=== PATIENT | female | born 1975 | race African-American/Black ===

== ENCOUNTER 2017-02-06 08:08 | Emergency (ER) | payer BC, MEDICAID ==
[2017-02-06] MEDS ORDERED: ONDANSETRON 4 MG TAB.RAPDIS PO ONE (08:45)
--- NOTE | 2017-02-06 08:51 | ER Document Report ---
ED GI/ - General Chief Complaint: Pelvic Pain Stated Complaint: LOWER ABDOMINAL PAIN Time Seen by Provider: 02/06/17 08:36 Notes: 12-year-old female presents to ED for pelvic pain goes around to the back with some nausea. No vomiting no diarrhea. Patient has a history of a complete hysterectomy TRAVEL OUTSIDE OF THE [place] IN LAST 30 DAYS: No - HPI Patient complains to provider of: Pelvic pain, Other - You know Onset: Yesterday Timing/Duration: Gradual Quality of pain: Achy, Cramping Severity at maximum: Moderate Severity in ED: Moderate Pain Level: 3 Location: Left flank, Right flank, Pelvis Vaginal bleeding (Compared to normal period): None LMP: Hysterectomy Associated symptoms: Nausea, Radiates to back Exacerbated by: Denies Relieved by: Denies Similar symptoms previously: Yes Recently seen / treated by doctor: No - Related Data Allergies/Adverse Reactions: No Known Allergies Allergy (Verified 02/06/17 08:11) Past Medical History - General Information source: Patient - Social History Smoking Status: Never Smoker Cigarette use (# per day): No Chew tobacco use (# tins/day): No Smoking Education Provided: No Frequency of alcohol use: None Drug Abuse: None Lives with: Family Family History: Arthritis, CAD, CVA, DM, Hyperlipidemia, Hypertension, Malignancy Patient has suicidal ideation: No Patient has homicidal ideation: No - Past Medical History Cardiac Medical History: Reports: None Pulmonary Medical History: Reports: Hx Pneumonia EENT Medical History: Reports: None Neurological Medical History: Reports: Hx Migraine, Hx Seizures Endocrine Medical History: Reports: None Renal/ Medical History: Reports: Hx Ovarian Cysts Malignancy Medical History: Reports: None GI Medical History: Reports: None Musculoskeltal Medical History: Reports None Skin Medical History: Reports None Psychiatric Medical History: Reports: None Traumatic Medical History: Reports: None Infectious Medical History: Reports: None Past Surgical History: Reports: Hx Section - 3, Hx Hysterectomy - TAHSBO - Immunizations Immunizations up to date: Yes Hx Diphtheria, Pertussis, Tetanus Vaccination: Yes Review of Systems - Review of Systems Constitutional: No symptoms reported EENT: No symptoms reported Cardiovascular: No symptoms reported Respiratory: No symptoms reported Gastrointestinal: Nausea. denies: Vomiting Genitourinary: Flank pain, Other - Pain pelvic Female Genitourinary: No symptoms reported Musculoskeletal: No symptoms reported Skin: No symptoms reported Hematologic/Lymphatic: No symptoms reported Neurological/Psychological: No symptoms reported -: Yes All other systems reviewed and negative Physical Exam - Vital signs Vitals: Temp Pulse Resp BP Pulse Ox 98.0 F 87 16 114/77 98 02/06/17 08:13 02/06/17 08:13 02/06/17 08:13 02/06/17 08:13 02/06/17 08:13 Interpretation: Normal - General General appearance: Appears well, Alert - HEENT Head: Normocephalic, Atraumatic Eyes: Normal Pupils: PERRL - Respiratory Respiratory status: No respiratory distress Chest status: Nontender Breath sounds: Normal Chest palpation: Normal - Cardiovascular Rhythm: Regular Heart sounds: Normal auscultation Murmur: No - Abdominal Inspection: Normal Distension: No distension Bowel sounds: Normal Tenderness: Tender - Pelvic area radiates to the back Organomegaly: No organomegaly - Back Back: Normal, Nontender - Extremities General upper extremity: Normal inspection, Nontender, Normal color, Normal ROM , Normal temperature General lower extremity: Normal inspection, Nontender, Normal color, Normal ROM , Normal temperature, Normal weight bearing. No: Dain's sign - Neurological Neuro grossly intact: Yes Cognition: Normal Orientation: AAOx4 [place] Coma Scale Eye Opening: Spontaneous [place] Coma Scale Verbal: Oriented [place] Coma Scale Motor: Obeys Commands [place] Coma Scale Total: 15 Speech: Normal Motor strength normal: LUE, RUE, LLE, RLE Sensory: Normal - Psychological Associated symptoms: Normal affect, Normal mood - Skin Skin Temperature: Warm Skin Moisture: Dry Skin Color: Normal Course - Re-evaluation Re-evalutation: 02/06/17 12:49 Discussed labs with patient and written report given to patient for follow-up with her primary doctor. - Vital Signs Vital signs: Temp Pulse Resp BP Pulse Ox 98.0 F 80 15 115/73 100 02/06/17 08:13 02/06/17 12:03 02/06/17 12:03 02/06/17 12:03 02/06/17 12:03 - Laboratory Result Diagrams: 02/06/17 08:50 02/06/17 08:50 Laboratory results interpreted by me: 02/06/17 02/06/17 08:50 08:50 Hgb 11.0 L Hct 34.5 L MCHC 31.9 L BUN 22 H Glucose 113 H Discharge - Discharge Clinical Impression: Nausea alone Abdominal pain Qualifiers: Abdominal location: unspecified location Qualified Code(s): R10.9 - Unspecified abdominal pain Condition: Stable Disposition: HOME, SELF-CARE Additional Instructions: ABDOMINAL PAIN: There are many causes of abdominal pain. Pain can mean a serious problem requiring surgery (such as appendicitis). It can also be an innocent problem that goes away on its own (such as a viral infection). Often, time must pass to determine the cause of pain. The physician does not feel that hospitalization is necessary, at present. Things may change within the next 24 hours. Call the doctor or come back for re- examination if any problems occur, such as: (1) Pain that becomes more severe, steady, or becomes concentrated in one specific area. Also, pain that is more severe with movement or coughing. (2) Vomiting that persists or becomes more frequent. (3) Blood in the vomitus, urine, or bowel movements. Blood in the stool may have a tarry or black appearance. (4) Shaking chills or fever greater than 100 degrees F. (5) The abdomen becomes more distended or swollen. (6) Bowel movements cease. (7) Failure to improve as expected. NORMAL EXAM AND WORKUP: At this time, your examination and workup show no significant abnormality. No significant abnormal physical findings are noted. All laboratory, EKG, and imaging (x-ray, CT scans, ultrasound) studies that were ordered show no significant abnormality. Although your examination and all studies that were ordered showed no significant abnormal finding, there are no examinations and no studies that are 100% accurate. There is always the possibility that some abnormality could exist and not be detected with physical examination or within the limits and capabilities of laboratory and other studies. You should return or follow up as you were instructed on your visit today for further evaluation if your symptoms do not resolve. ANTINAUSEA MEDICATION: You have been given a medication to suppress nausea and vomiting. This type of medication can be given as a shot, pill, or suppository. It will usually last for many hours. Pills and shots usually last six to eight hours, suppositories last about 12 hours. For the typical illness, only one or two doses of the medication may be necessary. Mild lightheadedness may occur. This type of medicine can cause drowsiness. Do not drive or operate dangerous machinery while under its influence. Do not mix with alcohol. See your doctor at once if you have muscle spasms or tightness, or uncontrollable motions (particularly of the neck, mouth, or jaw). Persistent vomiting or severe lightheadedness should also be evaluated by the physician. FOLLOW-UP CARE: If you have been referred to a physician for follow-up care, call the physician s office for an appointment as you were instructed or within the next two days. If you experience worsening or a significant change in your symptoms, notify the physician immediately or return to the Emergency Department at any time for re-evaluation. Prescriptions: Ondansetron [Zofran Odt 4 mg Tablet] 1 tab PO Q6H #10 tab.rapdis Forms: Return to Work Referrals: ALVARO DANIELS MD [Primary Care Provider] - Follow up as needed
[2017-02-06 09:11] LABS: ABSOLUTE EOSINOPHILS # (AUTO) 0.2 10^3/uL (0.0-0.6); ABSOLUTE MONOCYTES (AUTO) 0.3 10^3/uL (0.1-1.4); ABSOLUTE NEUT (AUTO) 2.2 10^3/uL (1.7-8.2); BASOPHILS % (AUTO) 0.8 % (0-2); EOSINOPHILS % (AUTO) 3.4 % (0-6); HEMATOCRIT 34.5 % (36.0-47.0); HGB HCT DIFFERENCE -1.5; LYMPHOCYTES % (AUTO) 42.1 % (13-45); MEAN CORPUSCULAR HEMOGLOBIN 27.2 pg (27.0-33.4); MEAN CORPUSCULAR HGB CONC 31.9 g/dL (32.0-36.0); MEAN CORPUSCULAR VOLUME 85 fl (80-97); MONOCYTES % (AUTO) 7.1 % (3-13); RED BLOOD COUNT 4.05 10^6/uL (3.72-5.28); RED CELL DISTRIBUTION WIDTH 13.8 % (11.5-14.0); SEGMENTED NEUTROPHILS % (AUTO) 46.6 % (42-78); WHITE BLOOD COUNT 4.8 10^3/uL (4.0-10.5)
[2017-02-06 09:19] LABS: APPEARANCE,URINE SLIGHTLY-CLOUDY; BILIRUBIN,URINE NEGATIVE (NEGATIVE); GLUCOSE, URINE NEGATIVE (NEGATIVE); KETONES,URINE NEGATIVE (NEGATIVE); LEUKOCYTE ESTERASE,URINE NEGATIVE (NEGATIVE); NITRITE,URINE NEGATIVE (NEGATIVE); PROTEIN,URINE NEGATIVE (NEGATIVE); URINE SPECIFIC GRAVITY 1.033; UROBILINOGEN,URINE NEGATIVE mg/dL (<2.0)
[2017-02-06 09:28] LABS: ALANINE AMINOTRANSFERASE 33 U/L (9-52); ALBUMIN 4.1 g/dL (3.5-5.0); ALKALINE PHOSPHATASE 66 U/L (38-126); ANION GAP 10 (5-19); ASPARTATE AMINO TRANSFERASE 22 U/L (14-36); BILIRUBIN,DIRECT 0.2 mg/dL (0.0-0.4); BILIRUBIN,TOTAL 0.3 mg/dL (0.2-1.3); BLOOD UREA NITROGEN 22 mg/dL (7-20); CALCIUM 9.7 mg/dL (8.4-10.2); CARBON DIOXIDE 27 mmol/L (22-30); CHLORIDE 107 mmol/L (98-107); CREATININE RESULT 0.74 mg/dL (0.52-1.25); GLUCOSE 113 mg/dL (75-110); POTASSIUM 3.7 mmol/L (3.6-5.0); SODIUM 144.2 mmol/L (137-145)
[2017-02-06 12:04] VITALS: BP 115/73
== END 2017-02-06 12:00 | disposition home or self-care (01) ==
LOC: ER 08:08
DX: R10.2 Pelvic and perineal pain (principal); R11.0 Nausea; Z90.710 Acquired absence of both cervix and uterus; Z87.42 Personal history of other diseases of the female genital tract
CPT/HCPCS: 99284; 36415; 85025; 80053; 81001; S0119

== ENCOUNTER 2017-12-18 17:50 | Emergency (ER) | payer MEDICAID ==
--- NOTE | 2017-12-18 18:14 | ER Document Report ---
ED Medical Screen (RME) - General Chief Complaint: Probable Seizure Stated Complaint: POSSIBLE SEIZURE Time Seen by Provider: 12/18/17 18:13 Notes: Patient presents from the dentist office where she apparently had multiple seizures. She does have a seizure history. She states she has not taken any medications for seizures in over 5 years because she does not like the way they make her feel. TRAVEL OUTSIDE OF THE [place] IN LAST 30 DAYS: No - Related Data Allergies/Adverse Reactions: No Known Allergies Allergy (Verified 02/06/17 08:11) Past Medical History Pulmonary Medical History: Reports: Hx Pneumonia Neurological Medical History: Reports: Hx Migraine, Hx Seizures Renal/ Medical History: Reports: Hx Ovarian Cysts. Denies: Hx Peritoneal Dialysis Past Surgical History: Reports: Hx Section - 3, Hx Hysterectomy - TAHSBO - Immunizations Immunizations up to date: Yes Hx Diphtheria, Pertussis, Tetanus Vaccination: Yes Physical Exam - Vital signs Vitals: Temp Pulse Resp BP Pulse Ox 97.9 F 86 16 118/80 97 12/18/17 18:04 12/18/17 18:04 12/18/17 18:04 12/18/17 18:04 12/18/17 18:04 Course - Vital Signs Vital signs: Temp Pulse Resp BP Pulse Ox 97.9 F 86 16 118/80 97 12/18/17 18:04 12/18/17 18:04 12/18/17 18:04 12/18/17 18:04 12/18/17 18:04
[2017-12-18 18:55] LABS: ABSOLUTE EOSINOPHILS # (AUTO) 0.1 10^3/uL (0.0-0.6); ABSOLUTE LYMPHOCYTES (AUTO) 1.8 10^3/uL (0.5-4.7); ABSOLUTE MONOCYTES (AUTO) 0.4 10^3/uL (0.1-1.4); ABSOLUTE NEUT (AUTO) 2.8 10^3/uL (1.7-8.2); BASOPHILS % (AUTO) 0.8 % (0-2); EOSINOPHILS % (AUTO) 2.4 % (0-6); HEMATOCRIT 37.7 % (36.0-47.0); LYMPHOCYTES % (AUTO) 34.9 % (13-45); MEAN CORPUSCULAR HEMOGLOBIN 26.9 pg (27.0-33.4); MEAN CORPUSCULAR HGB CONC 31.9 g/dL (32.0-36.0); MEAN CORPUSCULAR VOLUME 84 fl (80-97); MONOCYTES % (AUTO) 7.4 % (3-13); PLATELET COUNT 252 10^3/uL (150-450); RED BLOOD COUNT 4.46 10^6/uL (3.72-5.28); RED CELL DISTRIBUTION WIDTH 14.1 % (11.5-14.0); SEGMENTED NEUTROPHILS % (AUTO) 54.5 % (42-78); TOTAL CELLS COUNTED % (AUTO) 100 %; WHITE BLOOD COUNT 5.1 10^3/uL (4.0-10.5)
[2017-12-18 19:11] LABS: APPEARANCE,URINE CLEAR; BILIRUBIN,URINE NEGATIVE (NEGATIVE); COLOR,URINE YELLOW; GLUCOSE, URINE NEGATIVE (NEGATIVE); KETONES,URINE NEGATIVE (NEGATIVE); LEUKOCYTE ESTERASE,URINE NEGATIVE (NEGATIVE); NITRITE,URINE NEGATIVE (NEGATIVE); PROTEIN,URINE NEGATIVE (NEGATIVE); URINE SPECIFIC GRAVITY 1.026
[2017-12-18] MEDS ORDERED: LEVETIRACETAM 1000 MG/NACL-ISO 1,000 MG/100 ML RTUPB IV ONE (19:13)
[2017-12-18] MEDS ORDERED: NORMAL SALINE 1000 ML 1,000 ML IV ONE ×2 (19:13→20:34)
[2017-12-18] MEDS ORDERED: ONDANSETRON HCL INJ/PF 4 MG/2 ML SDV IV ONE (19:13)
--- NOTE | 2017-12-18 19:15 | ER Document Report ---
ED Seizure - General Chief Complaint: Probable Seizure Stated Complaint: POSSIBLE SEIZURE Time Seen by Provider: 12/18/17 18:13 Mode of Arrival: Stretcher Information source: Patient, Relative - HPI Patient complains to provider of: History of seizures Quality of pain: Achy Severity: Moderate Pain Level: 4 Can details of seizure be obtained/verified: Yes Character of seizure: Complete loss/conscious Post-ictal symptoms: Confusion, Headache Injuries: None Associated Symptoms: None Notes: Patient is a 42-year-old female with a history of epilepsy who took herself off medications approximately 2 years ago secondary to side effect profile, presents to the emergency room after having approximately 7 seizures while at the dentist today, seizures were witnessed by family member who reports generalized tonic-clonic activity, patient reports a headache after the fact and the last thing she remembers was going to the dentist, she was having a filling placed and did receive local anesthetic prior to seizure activity occurring, she denies any seizures prior to her dentist appointment, her last seizure was a 1-1/2 years ago, she denies any recent illness or injury - Related Data Allergies/Adverse Reactions: No Known Allergies Allergy (Verified 02/06/17 08:11) Past Medical History - General Information source: Patient - Social History Smoking Status: Never Smoker Chew tobacco use (# tins/day): No Frequency of alcohol use: Occasional Drug Abuse: None Family History: Arthritis, CAD, CVA, DM, Hyperlipidemia, Hypertension, Malignancy Patient has suicidal ideation: No Patient has homicidal ideation: No Pulmonary Medical History: Reports: Hx Pneumonia Neurological Medical History: Reports: Hx Migraine, Hx Seizures Renal/ Medical History: Reports: Hx Ovarian Cysts. Denies: Hx Peritoneal Dialysis Past Surgical History: Reports: Hx Section - 3, Hx Hysterectomy - TAHSBO - Immunizations Immunizations up to date: Yes Hx Diphtheria, Pertussis, Tetanus Vaccination: Yes Review of Systems - Review of Systems Constitutional: No symptoms reported EENT: No symptoms reported Cardiovascular: No symptoms reported Respiratory: No symptoms reported Gastrointestinal: No symptoms reported Genitourinary: No symptoms reported Female Genitourinary: No symptoms reported Musculoskeletal: No symptoms reported Skin: No symptoms reported Hematologic/Lymphatic: No symptoms reported Neurological/Psychological: See HPI -: Yes All other systems reviewed and negative Physical Exam - Vital signs Vitals: Temp Pulse Resp BP Pulse Ox 97.9 F 86 16 118/80 97 12/18/17 18:04 12/18/17 18:04 12/18/17 18:04 12/18/17 18:04 12/18/17 18:04 Interpretation: Normal - General General appearance: Appears well, Alert - HEENT Head: Normocephalic, Atraumatic Eyes: Normal Pupils: PERRL - Respiratory Respiratory status: No respiratory distress Chest status: Nontender Breath sounds: Normal Chest palpation: Normal - Cardiovascular Rhythm: Regular Heart sounds: Normal auscultation Murmur: No - Abdominal Inspection: Normal Distension: No distension Bowel sounds: Normal Tenderness: Nontender Organomegaly: No organomegaly - Back Back: Normal, Nontender - Extremities General upper extremity: Normal inspection, Nontender, Normal color, Normal ROM , Normal temperature General lower extremity: Normal inspection, Nontender, Normal color, Normal ROM , Normal temperature, Normal weight bearing. No: Dain's sign - Neurological Neuro grossly intact: Yes Cognition: Normal Orientation: AAOx4 [place] Coma Scale Eye Opening: Spontaneous [place] Coma Scale Verbal: Oriented [place] Coma Scale Motor: Obeys Commands [place] Coma Scale Total: 15 Speech: Normal Motor strength normal: LUE, RUE, LLE, RLE Sensory: Normal - Psychological Associated symptoms: Normal affect, Normal mood - Skin Skin Temperature: Warm Skin Moisture: Dry Skin Color: Normal Course - Re-evaluation Re-evalutation: 12/18/17 20:55 Patient resting comfortably, reports headache is improving significantly, not completely gone yet, labs were discussed at bedside which are unremarkable, patient will be discharged with prescription for Keppra, as well as instructions for follow-up, advised to return if symptoms worsen, patient acknowledges understanding and agreement with this plan - Vital Signs Vital signs: Temp Pulse Resp BP Pulse Ox 97.9 F 86 23 H 130/82 H 100 12/18/17 18:04 12/18/17 18:04 12/18/17 19:01 12/18/17 19:01 12/18/17 19:01 - Laboratory Result Diagrams: 12/18/17 18:25 12/18/17 18:25 Laboratory results interpreted by me: 12/18/17 12/18/17 12/18/17 18:25 18:25 18:25 MCH 26.9 L MCHC 31.9 L RDW 14.1 H Chloride 108 H BUN 23 H Glucose 134 H Urine Urobilinogen 2.0 H Urine Ascorbic Acid 40 H Discharge - Discharge Clinical Impression: Seizure Condition: Stable Disposition: HOME, SELF-CARE Instructions: Seizure, Known Epileptic ([facility]) Additional Instructions: Follow up with your primary care provider and neurologist in one to 2 days. Return to the emergency room immediately if symptoms worsen or any additional concerns. Prescriptions: Levetiracetam [Keppra 500 mg Tablet] 500 mg PO Q12 #60 tablet Forms: Return to Work
[2017-12-18 19:18] LABS: ALANINE AMINOTRANSFERASE 30 U/L (9-52); ALBUMIN 4.5 g/dL (3.5-5.0); ALKALINE PHOSPHATASE 56 U/L (38-126); ANION GAP 9 (5-19); ASPARTATE AMINO TRANSFERASE 34 U/L (14-36); BILIRUBIN,DIRECT 0.2 mg/dL (0.0-0.4); BILIRUBIN,TOTAL 0.4 mg/dL (0.2-1.3); BLOOD UREA NITROGEN 23 mg/dL (7-20); CALCIUM 9.9 mg/dL (8.4-10.2); CARBON DIOXIDE 28 mmol/L (22-30); CHLORIDE 108 mmol/L (98-107); GLUCOSE 134 mg/dL (75-110); POTASSIUM 4.2 mmol/L (3.6-5.0); TOTAL PROTEIN 6.9 g/dL (6.3-8.2)
[2017-12-18 21:48] VITALS: BP 108/73
== END 2017-12-18 21:48 | disposition home or self-care (01) ==
LOC: ER 17:50
DX: G40.909 Epilepsy, unspecified, not intractable, without status epilepticus (principal); R51 Headache; Z98.890 Other specified postprocedural states
CPT/HCPCS: 99284; 96361; 96374; 96375; 36415; 83735; 85025; 81025; 80053; 81001; J2405; J7030; J1953

== ENCOUNTER 2017-12-21 06:17 | Emergency (ER) | payer MEDICAID ==
[2017-12-21] MEDS ORDERED: LORAZEPAM INJ 2 MG/1 ML VIAL IV ONE (06:57)
[2017-12-21] MEDS ORDERED: LEVETIRACETAM INJ/PF 500 MG/5 ML SDV IV ONE (06:57)
--- NOTE | 2017-12-21 07:04 | ER Document Report ---
ED General - General Chief Complaint: Seizure Stated Complaint: POSSIBLE SEIZURE Time Seen by Provider: 12/21/17 06:24 Mode of Arrival: Ambulatory Information source: Patient Notes: 42-year-old female with a history of epilepsy presents via EMS from home after a witnessed seizure. Patient was seen 3 days prior to arrival after experiencing 7 seizures while at the dentist office. Patient was discharged home on Keppra. Mother and daughter were at the bedside states that she has been taking 500 mg of Keppra twice daily. Patient denies any preceding symptoms. She states that her last seizure was approximately a year and a half ago. Mother states that she was on Keppra but took herself off because she did not like the side effects. She has not been on Keppra regularly for a few years. Patient denies any recent illnesses, drug use, fever, chills, nausea, vomiting, chest pain, shortness of breath, abdominal pain, dysuria. She is currently alert and oriented 3 and complaining of a mild headache. Patient is not currently undergoing neurology care. Mother is requesting transfer to [facility]. Mother and daughter state that patient's usual seizures are absence seizures. She has never had tonic-clonic seizures prior to this week. TRAVEL OUTSIDE OF THE [place] IN LAST 30 DAYS: No - HPI Onset: Just prior to arrival Onset/Duration: Gradual Quality of pain: Achy Severity: Mild Associated symptoms: Headache, Slow to respond. denies: Chest pain, Diarrhea, Fever, Hurts to breath, Nausea, Vomiting, Shortness of breath Exacerbated by: Denies Relieved by: Denies Similar symptoms previously: Yes Recently seen / treated by doctor: Yes - Related Data Allergies/Adverse Reactions: No Known Allergies Allergy (Verified 12/21/17 06:52) Past Medical History - General Information source: Patient - Social History Smoking Status: Never Smoker Frequency of alcohol use: None Drug Abuse: None Family History: Arthritis, CAD, CVA, DM, Hyperlipidemia, Hypertension, Malignancy Patient has suicidal ideation: No Patient has homicidal ideation: No Pulmonary Medical History: Reports: Hx Pneumonia Neurological Medical History: Reports: Hx Migraine, Hx Seizures Renal/ Medical History: Reports: Hx Ovarian Cysts. Denies: Hx Peritoneal Dialysis Past Surgical History: Reports: Hx Section - 3, Hx Hysterectomy - Immunizations Immunizations up to date: Yes Hx Diphtheria, Pertussis, Tetanus Vaccination: Yes Review of Systems - Review of Systems Notes: Patient denies any recent illnesses, drug use, fever, chills, nausea, vomiting , chest pain, shortness of breath, abdominal pain, dysuria. She is currently alert and oriented 3 and complaining of a mild headache Physical Exam - Vital signs Vitals: Pulse Ox 98 12/21/17 06:26 Interpretation: Normal. No: Hypertensive, Tachycardic, Hypoxic, Febrile Notes: PHYSICAL EXAMINATION: GENERAL: Well-appearing, well-nourished and in no acute distress. HEAD: Atraumatic, normocephalic. EYES: Pupils equal round and reactive to light, extraocular movements intact, conjunctiva are normal. ENT: Nares patent, oropharynx clear without exudates. Moist mucous membranes. No tongue laceration NECK: Normal range of motion, supple without lymphadenopathy LUNGS: Breath sounds clear to auscultation bilaterally and equal. No wheezes rales or rhonchi. HEART: Regular rate and rhythm without murmurs ABDOMEN: Soft, nontender, nondistended abdomen. No guarding, no rebound. No masses appreciated. Female : No urinary incontinence. Musculoskeletal: Normal range of motion, no pitting or edema. No cyanosis. NEUROLOGICAL: Cranial nerves grossly intact. Normal speech, normal gait. Normal sensory, motor exams PSYCH: Normal mood, normal affect. SKIN: Warm, Dry, normal turgor, no rashes or lesions noted. Course - Re-evaluation Re-evalutation: Laboratory 12/21/17 12/21/17 12/21/17 06:26 06:26 07:02 WBC 5.0 RBC 4.44 Hgb 12.0 Hct 37.2 MCV 84 MCH 27.1 MCHC 32.4 RDW 14.1 H Plt Count 242 Seg Neutrophils % 43.9 Lymphocytes % 44.8 Monocytes % 6.3 Eosinophils % 3.9 Basophils % 1.1 Absolute Neutrophils 2.2 Absolute Lymphocytes 2.3 Absolute Monocytes 0.3 Absolute Eosinophils 0.2 Absolute Basophils 0.1 Sodium Cancelled Potassium Cancelled Chloride Cancelled Carbon Dioxide Cancelled Anion Gap Cancelled BUN Cancelled Creatinine Cancelled Est GFR ( Amer) Cancelled Est GFR (Non-Af Amer) Cancelled Glucose Cancelled Calcium Cancelled Magnesium Cancelled Total Bilirubin Cancelled Direct Bilirubin Cancelled Neonat Total Bilirubin Cancelled Neonat Direct Bilirubin Cancelled Neonat Indirect Bili Cancelled AST Cancelled ALT Cancelled Alkaline Phosphatase Cancelled Total Protein Cancelled Albumin Cancelled Urine Color YELLOW Urine Appearance CLEAR Urine pH 7.0 Ur Specific [place] 1.014 Urine Protein NEGATIVE Urine Glucose (UA) NEGATIVE Urine Ketones NEGATIVE Urine Blood NEGATIVE Urine Nitrite NEGATIVE Urine Bilirubin NEGATIVE Urine Urobilinogen 2.0 H Ur Leukocyte Esterase NEGATIVE Urine WBC (Auto) 2 Urine RBC (Auto) 1 Squamous Epi Cells Auto 3 Urine Mucus (Auto) RARE Urine Ascorbic Acid NEGATIVE Urine HCG, Qual NEGATIVE Urine Opiates Screen Urine Methadone Screen Ur Barbiturates Screen Ur Phencyclidine Scrn Ur Amphetamines Screen U Benzodiazepines Scrn Urine Cocaine Screen U Marijuana (THC) Screen Serum Alcohol Cancelled 12/21/17 12/21/17 07:02 07:15 WBC RBC Hgb Hct MCV MCH MCHC RDW Plt Count Seg Neutrophils % Lymphocytes % Monocytes % Eosinophils % Basophils % Absolute Neutrophils Absolute Lymphocytes Absolute Monocytes Absolute Eosinophils Absolute Basophils Sodium 145.9 H Potassium 3.8 Chloride 109 H Carbon Dioxide 27 Anion Gap 10 BUN 19 Creatinine 0.75 Est GFR ( Amer) > 60 Est GFR (Non-Af Amer) > 60 Glucose 106 Calcium 9.6 Magnesium 1.9 Total Bilirubin 0.3 Direct Bilirubin 0.3 Neonat Total Bilirubin Not Reportable Neonat Direct Bilirubin Not Reportable Neonat Indirect Bili Not Reportable AST 26 ALT 26 Alkaline Phosphatase 69 Total Protein 6.7 Albumin 4.2 Urine Color Urine Appearance Urine pH Ur Specific [place] Urine Protein Urine Glucose (UA) Urine Ketones Urine Blood Urine Nitrite Urine Bilirubin Urine Urobilinogen Ur Leukocyte Esterase Urine WBC (Auto) Urine RBC (Auto) Squamous Epi Cells Auto Urine Mucus (Auto) Urine Ascorbic Acid Urine HCG, Qual Urine Opiates Screen NEGATIVE Urine Methadone Screen NEGATIVE Ur Barbiturates Screen NEGATIVE Ur Phencyclidine Scrn NEGATIVE Ur Amphetamines Screen NEGATIVE U Benzodiazepines Scrn NEGATIVE Urine Cocaine Screen NEGATIVE U Marijuana (THC) Screen NEGATIVE Serum Alcohol < [address] 12/21/17 06:58 IMPRESSION: NORMAL BRAIN CT WITHOUT CONTRAST. EVIDENCE OF ACUTE STROKE: NO. 12/21/17 07:04 42-year-old female with a history of epilepsy presents via EMS from home after a witnessed seizure. Patient was seen 3 days prior to arrival after experiencing 7 seizures while at the dentist office. Patient was discharged home on Keppra. Mother and daughter were at the bedside states that she has been taking 500 mg of Keppra twice daily. Patient denies any preceding symptoms. Vital signs stable upon arrival. She does not appear toxic or dehydrated. She is in no acute distress. Patient is alert and oriented 3 and has normal neurologic exam. Patient received IV fluids, Zofran, Ativan, Keppra IV. 12/21/17 08:38 Patient reevaluated and is still resting comfortably. Family states that she seems more confused which I explained to them as normal and a post ictal patient. I reviewed laboratory findings and CT findings with the family which were both within normal limits. Family still requesting transfer to [facility]. Transfer for neurology workup will be attempted. 12/21/17 08:[address] Arenas from neurology at [facility] who recommends an increase of her Keppra to 750 twice daily. He states that he would suggest a few more hours of monitoring to see if the patient returns to baseline and if not he will accept the transfer. 12/21/17 14:41 Patient reevaluated multiple times and is still confused, unclear of the year but is alert and oriented to self and place. Patient was monitored for 5 hours without return to baseline. Patient was accepted to [facility] by Dr. Bryson. She had no further seizure activity during her ED course. - Vital Signs Vital signs: Temp Pulse Resp BP Pulse Ox 98.1 F 25 H 109/81 96 12/21/17 13:16 12/21/17 13:12 12/21/17 13:12 12/21/17 13:12 - Laboratory Result Diagrams: 12/21/17 06:26 12/21/17 07:15 Laboratory results interpreted by me: 12/21/17 12/21/17 12/21/17 06:26 07:02 07:15 RDW 14.1 H Sodium 145.9 H Chloride 109 H Urine Urobilinogen 2.0 H - Diagnostic Test Radiology reviewed: Image reviewed, Reports reviewed - EKG Interpretation by Me EKG shows normal: Sinus rhythm Discharge - Discharge Condition: Good Disposition: [facility]
[2017-12-21 07:06] LABS: ABSOLUTE BASOPHILS # (AUTO) 0.1 10^3/uL (0.0-0.2); ABSOLUTE EOSINOPHILS # (AUTO) 0.2 10^3/uL (0.0-0.6); ABSOLUTE LYMPHOCYTES (AUTO) 2.3 10^3/uL (0.5-4.7); ABSOLUTE MONOCYTES (AUTO) 0.3 10^3/uL (0.1-1.4); ABSOLUTE NEUT (AUTO) 2.2 10^3/uL (1.7-8.2); BASOPHILS % (AUTO) 1.1 % (0-2); EOSINOPHILS % (AUTO) 3.9 % (0-6); HEMATOCRIT 37.2 % (36.0-47.0); LYMPHOCYTES % (AUTO) 44.8 % (13-45); MEAN CORPUSCULAR HEMOGLOBIN 27.1 pg (27.0-33.4); MEAN CORPUSCULAR HGB CONC 32.4 g/dL (32.0-36.0); MEAN CORPUSCULAR VOLUME 84 fl (80-97); MONOCYTES % (AUTO) 6.3 % (3-13); PLATELET COUNT 242 10^3/uL (150-450); RED BLOOD COUNT 4.44 10^6/uL (3.72-5.28); RED CELL DISTRIBUTION WIDTH 14.1 % (11.5-14.0); SEGMENTED NEUTROPHILS % (AUTO) 43.9 % (42-78); TOTAL CELLS COUNTED % (AUTO) 100 %
[2017-12-21 07:37] LABS: APPEARANCE,URINE CLEAR; BILIRUBIN,URINE NEGATIVE (NEGATIVE); COLOR,URINE YELLOW; GLUCOSE, URINE NEGATIVE (NEGATIVE); KETONES,URINE NEGATIVE (NEGATIVE); LEUKOCYTE ESTERASE,URINE NEGATIVE (NEGATIVE); NITRITE,URINE NEGATIVE (NEGATIVE); PROTEIN,URINE NEGATIVE (NEGATIVE); URINE SPECIFIC GRAVITY 1.014
[2017-12-21 07:50] LABS: ALANINE AMINOTRANSFERASE 26 U/L (9-52); ALBUMIN 4.2 g/dL (3.5-5.0); ALKALINE PHOSPHATASE 69 U/L (38-126); ANION GAP 10 (5-19); ASPARTATE AMINO TRANSFERASE 26 U/L (14-36); BILIRUBIN,DIRECT 0.3 mg/dL (0.0-0.4); BILIRUBIN,TOTAL 0.3 mg/dL (0.2-1.3); BLOOD UREA NITROGEN 19 mg/dL (7-20); CALCIUM 9.6 mg/dL (8.4-10.2); CARBON DIOXIDE 27 mmol/L (22-30); CHLORIDE 109 mmol/L (98-107); GLUCOSE 106 mg/dL (75-110); POTASSIUM 3.8 mmol/L (3.6-5.0); SODIUM 145.9 mmol/L (137-145); TOTAL PROTEIN 6.7 g/dL (6.3-8.2)
[2017-12-21 07:53] LABS: ALCOHOL < 10 mg/dL (NONE DETECTED)
[2017-12-21 07:57] LABS: URINE AMPHETAMINES SCREEN NEGATIVE; URINE BARBITURATES SCREEN NEGATIVE; URINE BENZODIAZEPINES SCREEN NEGATIVE; URINE COCAINE SCREEN NEGATIVE; URINE MARIJUANA (THC) SCREEN NEGATIVE; URINE METHADONE SCREEN NEGATIVE; URINE PHENCYCLIDINE SCREEN NEGATIVE
--- NOTE | 2017-12-21 08:15 | RADIOLOGY REPORT (SQ) ---
EXAM DESCRIPTION: CT HEAD WITHOUT COMPLETED DATE/TIME: 12/21/2017 7:37 am REASON FOR STUDY: recurrent seizure c/o headache COMPARISON: 06/28/2015 TECHNIQUE: Axial images acquired through the brain without intravenous contrast. Images reviewed wi th bone, brain and subdural windows. Images stored on PACS. All CT scanners at this facility use dose modulation, iterative reconstruction, and/or weight based d osing when appropriate to reduce radiation dose to as low as reasonably achievable (ALARA). [facility]: Dose Right [facility]: CareDose [facility]: Dose Right [facility]: Teradose 4D [facility]: [employer] RADIATION DOSE: CT Rad equipment meets quality standard of care and radiation dose reduction techniq ues were employed. CTDIvol: 53.2 mGy. DLP: 1230 mGy-cm. mGy. LIMITATIONS: None. FINDINGS: VENTRICLES: Normal size and contour. CEREBRUM: No masses. No hemorrhage. No midline shift. No evidence for acute infarction. Normal gra y/white matter differentiation. No areas of low density in the white matter. CEREBELLUM: No masses. No hemorrhage. No alteration of density. No evidence for acute infarction. EXTRAAXIAL SPACES: No fluid collections. No masses. ORBITS AND GLOBE: No intra- or extraconal masses. Normal contour of globe without masses. CALVARIUM: No fracture. PARANASAL SINUSES: No fluid or mucosal thickening. SOFT TISSUES: No mass or hematoma. OTHER: No other significant finding. IMPRESSION: NORMAL BRAIN CT WITHOUT CONTRAST. EVIDENCE OF ACUTE STROKE: NO. COMMENT: Quality ID # [id number]: Final reports with documentation of one or more dose reduction techniques (e.g., Automated exposure control, adjustment of the mA and/or kV according to patient size, use of iterative reconstruction technique) TECHNICAL DOCUMENTATION: JOB ID: [id number] [employer]- All Rights Reserved Reading location - IP/workstation name: [email or web address]
[2017-12-21] MEDS ORDERED: NORMAL SALINE 1000 ML 1,000 ML IV ONE (08:27)
--- NOTE | 2017-12-21 09:18 | EKG REPORT ---
SEVERITY:- ABNORMAL ECG - SINUS RHYTHM NONSPECIFIC T ABNORMALITIES, INFERIOR LEADS : Confirmed by: Marcella Wise 21-Dec-2017 09:17:49
[2017-12-21 13:16] VITALS: BP 109/81
== END 2017-12-21 13:21 | disposition short-term general hospital (02) ==
LOC: ER 06:17
DX: R56.9 Unspecified convulsions (principal); R41.82 Altered mental status, unspecified; R51 Headache; Z79.899 Other long term (current) drug therapy
CPT/HCPCS: 93005; 99285; 96361; 96374; 96375; 36415; 80307 ×2; 83735; 85025; 81025; 80053; 81001; 70450; 93010; J2060; J7030; J1953

== ENCOUNTER 2018-02-27 21:18 | Emergency (ER) | payer MEDICAID ==
[2018-02-27 21:25] VITALS: BP 132/89
--- NOTE | 2018-02-27 22:32 | ER Document Report ---
ED Seizure - General Chief Complaint: Probable Seizure Stated Complaint: POSSIBLE SEIZURE Time Seen by Provider: 02/27/18 21:41 Information source: Patient, Relative Notes: Patient is a 42-year-old female who presents with chief complaint of seizure. Patient has a history of epilepsy, last seizure was on 12/21/2017. Patient's family reports they were out and about shopping today when she had a seizure while they were in the car. Patient did not fall, patient did not suffer any injury. Patient did not have any loss of bladder control. Patient is completely alert and oriented on my initial assessment. Patient takes Keppra 500 mg twice daily. - Related Data Allergies/Adverse Reactions: No Known Allergies Allergy (Verified 02/27/18 21:19) Past Medical History - General Information source: Patient - Social History Smoking Status: Never Smoker Frequency of alcohol use: Occasional Drug Abuse: None Lives with: Family Family History: Arthritis, CAD, CVA, DM, Hyperlipidemia, Hypertension, Malignancy Pulmonary Medical History: Reports: Hx Pneumonia Neurological Medical History: Reports: Hx Migraine, Hx Seizures Renal/ Medical History: Reports: Hx Ovarian Cysts. Denies: Hx Peritoneal Dialysis Past Surgical History: Reports: Hx Section - 3, Hx Hysterectomy - Immunizations Immunizations up to date: Yes Hx Diphtheria, Pertussis, Tetanus Vaccination: Yes Review of Systems - Review of Systems Constitutional: No symptoms reported EENT: No symptoms reported Cardiovascular: No symptoms reported Respiratory: No symptoms reported Gastrointestinal: No symptoms reported Genitourinary: No symptoms reported Female Genitourinary: No symptoms reported Musculoskeletal: No symptoms reported Skin: No symptoms reported Hematologic/Lymphatic: No symptoms reported Neurological/Psychological: See HPI Physical Exam - Vital signs Vitals: Temp Pulse Resp BP Pulse Ox 98.4 F 107 H 20 132/89 H 100 02/27/18 21:23 02/27/18 21:23 02/27/18 21:23 02/27/18 21:23 02/27/18 21:23 - Notes Notes: PHYSICAL EXAMINATION: GENERAL: Well-appearing, well-nourished and in no acute distress. HEAD: Atraumatic, normocephalic. EYES: Pupils equal round and reactive to light, extraocular movements intact, conjunctiva are normal. ENT: Nares patent, oropharynx clear without exudates. Moist mucous membranes. NECK: Normal range of motion, supple without lymphadenopathy LUNGS: Breath sounds clear to auscultation bilaterally and equal. No wheezes rales or rhonchi. HEART: Regular rate and rhythm without murmurs ABDOMEN: Soft, nontender, nondistended abdomen. No guarding, no rebound. No masses appreciated. Female : deferred Musculoskeletal: Normal range of motion, no pitting or edema. No cyanosis. NEUROLOGICAL: Cranial nerves grossly intact. Normal speech. Normal sensory, motor exams PSYCH: Normal mood, normal affect. SKIN: Warm, Dry, normal turgor, no rashes or lesions noted. Course - Re-evaluation Re-evalutation: Patient is then otherwise healthy 42-year-old female with a history of epilepsy. Over the last few months patient has been having increasing seizure activity. Patient currently taking Keppra 500 mg p.o. twice daily. Patient was recently seen here on 12/21/17 and was subsequently transferred to [facility] per the family's request. At that time it appears per the notes it was recommended that her Keppra be increased to 750 mg p.o. twice daily however patient reports that she does not "like the way this makes her feel". Patient has a appointment scheduled with her neurologist in [place] Saturday at 9am. Patient is on the hall monitor, sinus rhythm rate of 89. Blood pressure 114/ 83. Pulse ox 98%. Patient remains alert, oriented and with no acute distress. Multiple family members are at bedside. Family reports the patient has been well, has not had a seizure since December 21. Will draw CBC, comprehensive, magnesium, EtOH levels and perform urinalysis. EKG revealed a sinus rhythm, rate 78, no ischemic changes, EKG is unchanged from previous. CBC, comprehensive metabolic panel, magnesium and EtOH level are all unremarkable. After several hours of monitoring, patient has not had any seizures while in the department. Patient already has an appointment scheduled for 9 AM Saturday with her neurologist in [place]. Patient encouraged to call her neurologist today and let him know that she had another seizure. Patient encouraged to also keep her appointment for Saturday. Patient and family member at bedside agree with plan of care and patient will be discharged home at this time - Vital Signs Vital signs: Temp Pulse Resp BP Pulse Ox 98.4 F 107 H 20 132/89 H 100 02/27/18 21:23 02/27/18 21:23 02/27/18 21:23 02/27/18 21:23 02/27/18 21:23 - Laboratory Result Diagrams: 02/27/18 23:10 02/27/18 23:10 Laboratory results interpreted by me: 02/27/18 02/27/18 02/28/18 23:10 23:10 00:01 Hgb 11.3 L Hct 34.2 L RDW 14.2 H Sodium 147.3 H Chloride 112 H BUN 21 H POC Glucose 113 H AST 43 H Discharge - Discharge Clinical Impression: Seizure Condition: Stable Disposition: HOME, SELF-CARE Additional Instructions: Seizure, Known Epileptic You have had a seizure. Seizures may "break through" in an epileptic due to stress of infection or injury, a change in blood chemistry, or drug and alcohol use. Another common cause is failure to take medication as prescribed. Your doctor has evaluated your situation for the likely cause of this seizure. It is important that you follow his advice concerning any medication changes and follow-up care. Further testing of anti-seizure medication levels in your blood may be necessary. 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 This seizure must be reported to the shuttle van driver 's license bureau. Call the doctor or return if seizures recur, or if new or unusual symptoms arise -- such as severe headache, confusion, excessive sleepiness, local weakness or numbness, neck stiffness, or fever. Please call your neurologist in [facility] this morning. Please keep the appointment that you have scheduled with them for Saturday at 9 AM. Please continue to take her Keppra as directed. Return to the emergency department for any emergent concerns.
[2018-02-27 23:20] LABS: ABSOLUTE BASOPHILS # (AUTO) 0.1 10^3/uL (0.0-0.2); ABSOLUTE EOSINOPHILS # (AUTO) 0.1 10^3/uL (0.0-0.6); ABSOLUTE LYMPHOCYTES (AUTO) 1.5 10^3/uL (0.5-4.7); ABSOLUTE MONOCYTES (AUTO) 0.3 10^3/uL (0.1-1.4); ABSOLUTE NEUT (AUTO) 2.2 10^3/uL (1.7-8.2); BASOPHILS % (AUTO) 1.2 % (0-2); EOSINOPHILS % (AUTO) 2.3 % (0-6); HEMATOCRIT 34.2 % (36.0-47.0); HEMOGLOBIN 11.3 g/dL (12.0-15.5); MEAN CORPUSCULAR HEMOGLOBIN 27.9 pg (27.0-33.4); MEAN CORPUSCULAR VOLUME 84 fl (80-97); MONOCYTES % (AUTO) 7.7 % (3-13); PLATELET COUNT 218 10^3/uL (150-450); RED BLOOD COUNT 4.05 10^6/uL (3.72-5.28); RED CELL DISTRIBUTION WIDTH 14.2 % (11.5-14.0); SEGMENTED NEUTROPHILS % (AUTO) 52.8 % (42-78); TOTAL CELLS COUNTED % (AUTO) 100 %; WHITE BLOOD COUNT 4.2 10^3/uL (4.0-10.5)
[2018-02-27 23:39] LABS: ALANINE AMINOTRANSFERASE 42 U/L (9-52); ALBUMIN 4.2 g/dL (3.5-5.0); ALKALINE PHOSPHATASE 72 U/L (38-126); ANION GAP 10 (5-19); ASPARTATE AMINO TRANSFERASE 43 U/L (14-36); BILIRUBIN,DIRECT 0.4 mg/dL (0.0-0.4); BILIRUBIN,TOTAL 0.4 mg/dL (0.2-1.3); BLOOD UREA NITROGEN 21 mg/dL (7-20); CALCIUM 9.4 mg/dL (8.4-10.2); CARBON DIOXIDE 25 mmol/L (22-30); CHLORIDE 112 mmol/L (98-107); GLUCOSE 102 mg/dL (75-110); SODIUM 147.3 mmol/L (137-145)
[2018-02-27 23:41] LABS: ALCOHOL < 10 mg/dL (NONE DETECTED)
--- NOTE | 2018-02-28 00:18 | EKG REPORT ---
SEVERITY:- ABNORMAL ECG - SINUS RHYTHM FIRST DEGREE AV BLOCK BORDERLINE T ABNORMALITIES, INFERIOR LEADS : Confirmed by: Khadijah Hou MD 28-Feb-2018 00:16:23
== END 2018-02-28 00:45 | disposition home or self-care (01) ==
LOC: ER 21:18
DX: G40.909 Epilepsy, unspecified, not intractable, without status epilepticus (principal); Z79.899 Other long term (current) drug therapy
CPT/HCPCS: 36415; 80053; 80307; 82962; 83735; 85025; 93005; 93010; 99284

== ENCOUNTER 2018-04-09 14:48 | Emergency (ER) | payer MEDICAID ==
[2018-04-09 14:59] VITALS: BP 123/79
[2018-04-09] MEDS ORDERED: PROCHLORPERAZINE EDISYLATE INJ 10 MG/2 ML VIAL IM ONE (15:24)
[2018-04-09] MEDS ORDERED: KETOROLAC TROMETHAMINE INJ/PF 30 MG/1 ML SDV IM ONE (15:24)
[2018-04-09] MEDS ORDERED: DIPHENHYDRAMINE HCL 50 MG CAPSULE PO ONE (15:24)
--- NOTE | 2018-04-09 15:29 | ER Document Report ---
ED Headache - General Chief Complaint: Sinus Congestion Stated Complaint: MIGRAINE Time Seen by Provider: 04/09/18 15:16 Mode of Arrival: Ambulatory Information source: Patient Notes: 42-year-old female presents to ED for complaint of sinus congestion headache since yesterday. States she also has a history of migraines. She states she has had nausea but no vomiting. She states she is a history of epilepsy and his last seizure was in January. She states she sees a neurologist and she last saw him in March. Patient is alert and oriented respirations regular and unlabored pupils equal and react light walk with a even steady gait. TRAVEL OUTSIDE OF THE [place] IN LAST 30 DAYS: No - HPI Patient complains to provider of: Headache Patient reports: Hx chronic headaches Onset: Yesterday Onset was: Gradual Timing: Still present Quality of pain: Achy, Sharp, Stabbing Severity: Moderate Pain Level: 4 Associated symptoms: Nausea/vomiting - Nausea only Exacerbated by: Light, Noise Similar symptoms previously: Yes Recently seen / treated by doctor: Yes - Related Data Allergies/Adverse Reactions: No Known Allergies Allergy (Verified 04/09/18 14:52) Past Medical History - General Information source: Patient - Social History Smoking Status: Never Smoker Cigarette use (# per day): No Chew tobacco use (# tins/day): No Smoking Education Provided: No Frequency of alcohol use: None Drug Abuse: None Lives with: Family Family History: Arthritis, CAD, CVA, DM, Hyperlipidemia, Hypertension, Malignancy Patient has suicidal ideation: No Patient has homicidal ideation: No - Past Medical History Cardiac Medical History: Reports: None Pulmonary Medical History: Reports: Hx Pneumonia EENT Medical History: Reports: None Neurological Medical History: Reports: Hx Migraine, Hx Seizures Endocrine Medical History: Reports: None Renal/ Medical History: Reports: Hx Ovarian Cysts Malignancy Medical History: Reports: None GI Medical History: Reports: None Musculoskeletal Medical History: Reports None Skin Medical History: Reports None Psychiatric Medical History: Reports: None Traumatic Medical History: Reports: None Infectious Medical History: Reports: None Past Surgical History: Reports: Hx Section - 3, Hx Hysterectomy - Immunizations Immunizations up to date: Yes Hx Diphtheria, Pertussis, Tetanus Vaccination: Yes Review of Systems - Review of Systems Constitutional: No symptoms reported EENT: Sinus pressure, Sinus discharge Cardiovascular: No symptoms reported Respiratory: No symptoms reported Gastrointestinal: Nausea. denies: Vomiting Genitourinary: No symptoms reported Female Genitourinary: No symptoms reported Musculoskeletal: No symptoms reported Skin: No symptoms reported Hematologic/Lymphatic: No symptoms reported Neurological/Psychological: Headaches Physical Exam - Vital signs Vitals: Temp Pulse Resp BP Pulse Ox 98 F 75 18 123/79 100 04/09/18 14:56 04/09/18 14:56 04/09/18 14:56 04/09/18 14:56 04/09/18 14:56 Interpretation: Normal - General General appearance: Appears well, Alert - HEENT Head: Normocephalic, Atraumatic Eyes: Normal Pupils: PERRL Visual schmidt normal: Yes Ears: Normal External canal: Normal Tympanic membrane: Normal Sinus: Swelling Nasal: Swelling, Clear rhinorrhea Mouth/Lips: Normal Mucous membranes: Normal Pharynx: Post nasal drainage Neck: Normal - Respiratory Respiratory status: No respiratory distress Chest status: Nontender Breath sounds: Normal Chest palpation: Normal - Cardiovascular Rhythm: Regular Heart sounds: Normal auscultation Murmur: No - Abdominal Inspection: Normal Distension: No distension Bowel sounds: Normal Tenderness: Nontender Organomegaly: No organomegaly - Back Back: Normal, Nontender - Extremities General upper extremity: Normal inspection, Nontender, Normal color, Normal ROM , Normal temperature General lower extremity: Normal inspection, Nontender, Normal color, Normal ROM , Normal temperature, Normal weight bearing. No: Dain's sign - Neurological Neuro grossly intact: Yes Cognition: Normal Orientation: AAOx4 [place] Coma Scale Eye Opening: Spontaneous Víctor Coma Scale Verbal: Oriented [place] Coma Scale Motor: Obeys Commands [place] Coma Scale Total: 15 Speech: Normal Cranial nerves: Normal Cerebellar coordination: Normal Motor strength normal: LUE, RUE, LLE, RLE Additional motor exam normals: Equal overweaver Sensory: Normal Biceps - Reflex grade: 2 = Normal Triceps - Reflex grade: 2 = Normal Brachioradialis - Reflex grade: 2 = Normal Knee - Reflex grade: 2 = Normal Ankle - Reflex grade: 2 = Normal - Psychological Associated symptoms: Normal affect, Normal mood - Skin Skin Temperature: Warm Skin Moisture: Dry Skin Color: Normal Course - Re-evaluation Re-evalutation: 04/09/18 15:41 Patient was treated with Compazine and Benadryl and Toradol discharged home with prescription for the same. She states headache is much better. After performing a Medical Screening Examination, I estimate there is LOW risk for ACUTE GLAUCOMA, TEMPORAL ARTERITIS, MENINGITIS, INCRANIAL HEMORRHAGE, or ISCHEMIC STROKE thus I consider the discharge disposition reasonable. I have reevaluated this patient multiple times and no significant life threatening changes are noted. The patient and I have discussed the diagnosis and risks, and we agree with discharging home with close follow-up with the understanding that symptoms and presentations can change. We also discussed returning to the Emergency Department immediately if new or worsening symptoms occur. We have discussed the symptoms which are most concerning (e.g., changing or worsening symptoms, new numbness or weakness, vomiting, fever) that necessitate immediate return. - Vital Signs Vital signs: Temp Pulse Resp BP Pulse Ox 98 F 75 18 123/79 100 04/09/18 14:56 04/09/18 14:56 04/09/18 14:56 04/09/18 14:56 04/09/18 14:56 Discharge - Discharge Clinical Impression: Headache Qualifiers: Headache type: unspecified Headache chronicity pattern: unspecified pattern Intractability: not intractable Qualified Code(s): R51 - Headache URI (upper respiratory infection) Qualifiers: URI type: unspecified URI Qualified Code(s): J06.9 - Acute upper respiratory infection, unspecified Condition: Stable Disposition: HOME, SELF-CARE Additional Instructions: HEADACHE: The physician does not feel that the headache you are experiencing has a serious underlying cause. Most headaches are due to emotional stress, with resultant muscle tension (tension headache). Occasionally, headaches are secondary to changes in the blood vessels of the scalp (vascular headache and migraine headache). Sometimes, a headache is the first symptom of another developing illness, such as a viral infection. You have no evidence of stroke, bleeding, meningitis, or other serious cause of your headache. The treatment of headaches varies with the severity and cause of the pain. Not all headaches need pain shots. In fact, there is evidence that using narcotics for headaches may make them worse in the long run. The physician will determine the therapy that's in your best interest. If you develop a fever, if the headache is different from any you've previously experienced, or if the headache progressively worsens, then call your physician at once or go to the emergency room. UPPER RESPIRATORY ILLNESS: You have a viral infection of the respiratory passages -- a "cold." This common infection causes nasal congestion, drainage, and often sore throat and cough. It is highly contagious. The disease usually lasts about 10 to 14 days. There is no "cure" for the viral infection -- it must run its course. If there is a complication, such as bacterial infection in the nose, sinuses, middle ear, or bronchial tubes, antibiotics may be required. The antibiotics won't affect the virus. Drink plenty of fluids. A humidifier may help. An expectorant medication or decongestant may make you more comfortable. Use acetaminophen or ibuprofen for fever or aches. See the doctor if fever persists over two days, if there is any significant worsening of your symptoms, or if you simply fail to improve as expected. USE OF DIPHENHYDRAMINE: Diphenhydramine (Benadryl) is an antihistamine and has been recommended to help treat your headache and to prevent side effects of other medications used to treat headaches. The medication can be repeated four times daily. Age Elixir (12.5 mg/tsp) 25 mg pill adult 1-2 tabs Antihistamines may cause drowsiness, especially with the first dose. Do not operate machinery or drive while under the effects of the medication. Do not combine the medication with alcohol, or with any other medication without talking to your doctor. ANTINAUSEA MEDICATION: You have been given a medication to suppress nausea and vomiting. This type of medication can be given as a shot, pill, or suppository. It will usually last for many hours. Pills and shots usually last six to eight hours, suppositories last about 12 hours. For the typical illness, only one or two doses of the medication may be necessary. Mild lightheadedness may occur. This type of medicine can cause drowsiness. Do not drive or operate dangerous machinery while under its influence. Do not mix with alcohol. See your doctor at once if you have muscle spasms or tightness, or uncontrollable motions (particularly of the neck, mouth, or jaw). Persistent vomiting or severe lightheadedness should also be evaluated by the physician. COMPAZINE FOR HEADACHE: You have received therapy for headaches, using im Compazine. This treatment is dramatically successful in relieving the headache in about 50 percent of cases. When it works, it provides a rapid method of eliminating the headache without resorting to narcotics (and the problems associated with them). Most patients still feel fully alert after the Compazine, but others may be slightly drowsy. It's best not to drive or work with machinery for six to eight hours. Do not take alcohol or other medication unless you discuss it with the doctor. If you develop tightness and spasms in your muscles, especially the neck and tongue, you should return. This is a side effect which can be treated. TORADOL INJECTION: You have been given an injection of ketorolac tromethamine (Toradol). This is an excellent, safe drug for pain control. It also has potent antiinflammatory action. You should have significant pain relief within about one hour. Toradol is not addicting and is non-sedating. It does not interfere with driving or work. Call or return if you develop itching, hives, shortness of breath, or rash. FOLLOW-UP CARE: If you have been referred to a physician for follow-up care, call the physician s office for an appointment as you were instructed or within the next two days. If you experience worsening or a significant change in your symptoms, notify the physician immediately or return to the Emergency Department at any time for re-evaluation. Follow-up with your primary doctor and your neurologist Prescriptions: Ibuprofen 600 mg PO Q6HP PRN #20 tablet PRN Reason: Prochlorperazine Maleate [Compazine 10 mg Tablet] 10 mg PO Q6HP PRN #10 tablet PRN Reason:
== END 2018-04-09 15:43 | disposition home or self-care (01) ==
LOC: ER 14:48
DX: R51 Headache (principal); J06.9 Acute upper respiratory infection, unspecified; R09.81 Nasal congestion; R11.0 Nausea; J34.89 Other specified disorders of nose and nasal sinuses; R09.82 Postnasal drip
CPT/HCPCS: 99283; 96372; J3490; J1885; J0780

== ENCOUNTER 2018-04-17 20:40 | Emergency (ER) | payer MEDICAID ==
[2018-04-17] MEDS ORDERED: KETOROLAC TROMETHAMINE INJ/PF 30 MG/1 ML SDV IV ONE (22:52)
[2018-04-17] MEDS ORDERED: METOCLOPRAMIDE HCL INJ/PF 10 MG/2 ML SDV IV ONE (22:52)
[2018-04-17] MEDS ORDERED: METHOCARBAMOL INJ/PF 1000 MG/10 ML SDV IV ONE (22:53)
[2018-04-17] MEDS ORDERED: DIPHENHYDRAMINE HCL 50 MG/ML VIAL IV ONE (22:53)
[2018-04-17] MEDS ORDERED: NORMAL SALINE 1000 ML 1,000 ML IV ONE (22:53)
--- NOTE | 2018-04-17 23:53 | ER Document Report ---
ED Headache - General Chief Complaint: Headache Stated Complaint: NAUSEA/VOMITING Time Seen by Provider: 04/17/18 22:35 Notes: Patient is a 42-year-old female who comes emergency department for chief complaint of headache. Headache started almost 2 weeks ago, she states that she keeps getting headache every day. She states it feels like a band around her head, then starts throbbing, today she started having vomiting with it as well. She denies vision changes, focal numbness or weakness, she has had similar headaches in the past. She has a history of migraines, has seen neurology, she also has a history of seizures and takes Keppra. She denies fever or chills, head injury, headache was not maximal at onset. She does not take any blood thinners. She denies any alcohol. TRAVEL OUTSIDE OF THE [place] IN LAST 30 DAYS: No - Related Data Allergies/Adverse Reactions: No Known Allergies Allergy (Verified 04/09/18 14:52) Past Medical History - General Information source: Patient - Social History Smoking Status: Never Smoker Frequency of alcohol use: None Drug Abuse: None Lives with: Family Family History: Arthritis, CAD, CVA, DM, Hyperlipidemia, Hypertension, Malignancy Pulmonary Medical History: Reports: Hx Pneumonia Neurological Medical History: Reports: Hx Migraine, Hx Seizures Renal/ Medical History: Reports: Hx Ovarian Cysts. Denies: Hx Peritoneal Dialysis Past Surgical History: Reports: Hx Section - 3, Hx Hysterectomy - Immunizations Immunizations up to date: Yes Hx Diphtheria, Pertussis, Tetanus Vaccination: Yes Review of Systems - Review of Systems Constitutional: No symptoms reported EENT: No symptoms reported Cardiovascular: No symptoms reported Respiratory: No symptoms reported Gastrointestinal: See HPI Genitourinary: No symptoms reported Female Genitourinary: No symptoms reported Musculoskeletal: No symptoms reported Skin: No symptoms reported Hematologic/Lymphatic: No symptoms reported Neurological/Psychological: See HPI Physical Exam - Vital signs Vitals: Temp Pulse Resp BP Pulse Ox 98.4 F 85 13 117/78 100 04/17/18 20:55 04/17/18 20:55 04/17/18 20:55 04/17/18 20:55 04/17/18 20:55 - Notes Notes: GENERAL: Alert, interacts well. No acute distress. HEAD: Normocephalic, atraumatic. EYES: Pupils equal, round, and reactive to light. Extraocular movements intact. ENT: Oral mucosa moist, tongue midline. NECK: Full range of motion. Supple. Trachea midline. LUNGS: Clear to auscultation bilaterally, no wheezes, rales, or rhonchi. No respiratory distress. HEART: Regular rate and rhythm. No murmur ABDOMEN: Soft, non-tender. Non-distended. Bowel sounds present in all 4 quadrants. EXTREMITIES: Moves all 4 extremities spontaneously. No edema, normal radial and dorsalis pedis pulses bilaterally. No cyanosis. BACK: no cervical, thoracic, lumbar midline tenderness. Tenderness with tight muscle fibers along the right paracervical muscles, slightly limited range of motion laterally to the right, normal range of motion of the neck otherwise. No saddle anesthesia, normal distal neurovascular exam. NEUROLOGICAL: Alert and oriented x3. Normal speech. [cranial nerves II through XII grossly intact]. PSYCH: Normal affect, normal mood. SKIN: Warm, dry, normal turgor. No rashes or lesions noted. Course - Re-evaluation Re-evalutation: Patient with headache of gradual onset, she is well-appearing on my exam, no fever, no signs of distress. She has right-sided paracervical tenderness with pain and slightly limited range of motion laterally to the right, her physical examination is otherwise unremarkable. Suggests tension headache with secondary migraine. Will medicate and reevaluate. On reevaluation patient states her headache is gone. She states she is ready to leave. She has neurology follow-up. Placing on medication for her tight and spasms of neck muscles to reduce tension headaches, discussed follow-up and return precautions, patient states understanding and agreement. - Vital Signs Vital signs: Temp Pulse Resp BP Pulse Ox 98.4 F 86 18 103/72 99 04/17/18 20:55 04/18/18 01:17 04/18/18 01:17 04/18/18 01:17 04/18/18 01:17 Discharge - Discharge Clinical Impression: Headache Qualifiers: Headache type: unspecified Headache chronicity pattern: acute headache Intractability: not intractable Qualified Code(s): R51 - Headache Condition: Stable Disposition: HOME, SELF-CARE Additional Instructions: Your symptoms and evaluation are most consistent with a tension headache triggering a migraine. Because of the amount of muscle tension/spasm in your neck we have placed you on Valium for the next couple of days, also apply heat to the area of the neck, continue current medications. Follow-up with your provider for additional evaluation and management. Return if you worsen including returned or severe headache, vomiting, fever, Prescriptions: Diazepam [Valium 5 mg Tablet] 1 - 2 tab PO TID PRN #12 tablet PRN Reason: Referrals: KEVIN MCQUEEN, [facility] [Primary Care Provider] - Follow up as needed
[2018-04-18 01:18] VITALS: BP 103/72
== END 2018-04-18 01:18 | disposition home or self-care (01) ==
LOC: ER 20:40
DX: R51 Headache (principal); R11.2 Nausea with vomiting, unspecified; Z90.710 Acquired absence of both cervix and uterus
CPT/HCPCS: 99283; 96361; 96375; 96365; J1200; J2800; J1885; J2765; J7030

== ENCOUNTER 2018-10-03 14:03 | Emergency (ER) | payer MEDICAID ==
--- NOTE | 2018-10-03 15:21 | ER Document Report ---
ED Medical Screen (RME) - General Chief Complaint: Nausea/Vomiting Stated Complaint: VOMITING Time Seen by Provider: 10/03/18 15:19 Primary Care Provider: KEVIN MCQUEEN NP [Primary Care Provider] - Follow up as needed Notes: Patient says that she has a salty taste in her mouth all the time for the past couple of weeks. Otherwise, has not been sick. No fevers. Has never had this before. Patient's been on Keppra for seizures for about 10 months. She started taking Cymbalta about 1 month ago. TRAVEL OUTSIDE OF THE [place] IN LAST 30 DAYS: No - Related Data Allergies/Adverse Reactions: No Known Allergies Allergy (Verified 04/09/18 14:52) Past Medical History - Social History Chew tobacco use (# tins/day): No Frequency of alcohol use: None Drug Abuse: None Pulmonary Medical History: Reports: Hx Pneumonia Neurological Medical History: Reports: Hx Migraine, Hx Seizures Renal/ Medical History: Reports: Hx Ovarian Cysts. Denies: Hx Peritoneal Dialysis Past Surgical History: Reports: Hx Section - 3, Hx Hysterectomy - Immunizations Immunizations up to date: Yes Hx Diphtheria, Pertussis, Tetanus Vaccination: Yes Physical Exam - Vital signs Vitals: Temp Pulse Resp BP Pulse Ox 98.1 F 89 16 103/66 97 10/03/18 14:17 10/03/18 14:17 10/03/18 14:17 10/03/18 14:17 10/03/18 14:17 Course - Vital Signs Vital signs: Temp Pulse Resp BP Pulse Ox 98.1 F 89 16 103/66 97 10/03/18 14:17 10/03/18 14:17 10/03/18 14:17 10/03/18 14:17 10/03/18 14:17 Doctor's Discharge - Discharge Referrals: KEVIN MCQUEEN NP [Primary Care Provider] - Follow up as needed
--- NOTE | 2018-10-03 16:51 | ER Document Report ---
HPI - HPI Patient complains to provider of: Salty taste in mouth Time Seen by Provider: 10/03/18 15:19 Onset/Duration: Persistent Pain Level: Denies Context: Patient states she has had persistent salty taste in her mouth as well as a dry mouth for the past 2 weeks. Patient does admit to recently starting Cymbalta 1 month ago. Patient denies any recent changes in her dosage. Patient denies any history of acid reflux. Patient does report some mild sinus congestion symptoms. Patient denies any dental procedures recently. Patient states that she has not been eating or drinking as much due to everything tasting so salty. Patient states that change in taste is worse whenever she eats or drinks anything. Exacerbated by: Food Relieved by: Denies Similar symptoms previously: No Recently seen / treated by doctor: No - ROS ROS below otherwise negative: Yes Systems Reviewed and Negative: Yes All other systems reviewed and negative - CONSTITUTIONAL Constitutional: DENIES: Fever, Chills - EENT EENT: REPORTS: Congestion. DENIES: Sore Throat - NEURO Neurology: DENIES: Headache, Vision blurred, Dizzinesss / Vertigo - RESPIRATORY Respiratory: DENIES: Coughing - GASTROINTESTINAL Gastrointestinal: DENIES: Nausea, Patient vomiting - REPRODUCTIVE Reproductive: DENIES: : - DERM Skin Color: Normal Skin Problems: None Past Medical History - General Information source: Patient - Social History Smoking Status: Never Smoker Chew tobacco use (# tins/day): No Frequency of alcohol use: None Drug Abuse: None Family History: Arthritis, CAD, CVA, DM, Hyperlipidemia, Hypertension, Malignancy Patient has suicidal ideation: No Patient has homicidal ideation: No Pulmonary Medical History: Reports: Hx Pneumonia Neurological Medical History: Reports: Hx Migraine, Hx Seizures Renal/ Medical History: Reports: Hx Ovarian Cysts. Denies: Hx Peritoneal Dialysis Psychiatric Medical History: Reports: Hx Depression Past Surgical History: Reports: Hx Section - 3, Hx Hysterectomy - Immunizations Immunizations up to date: Yes Hx Diphtheria, Pertussis, Tetanus Vaccination: Yes Vertical Provider Document - CONSTITUTIONAL Agree With Documented VS: Yes Exam Limitations: No Limitations General Appearance: WD/WN, No Apparent Distress - INFECTION CONTROL TRAVEL OUTSIDE OF THE [place] IN LAST 30 DAYS: No - HEENT HEENT: Atraumatic, Normocephalic Notes: dry mouth - NECK Neck: Normal Inspection, Supple. negative: Lymphadenopathy-Left, Lymphadenop athy-Right - RESPIRATORY Respiratory: Breath Sounds Normal, No Respiratory Distress - CARDIOVASCULAR Cardiovascular: Regular Rate, Regular Rhythm - MUSCULOSKELETAL/EXTREMETIES Musculoskeletal/Extremeties: MAEW - NEURO Level of Consciousness: Awake, Alert, Appropriate Motor/Sensory: No Motor Deficit - DERM Integumentary: Warm, Dry, No Rash Course - Re-evaluation Re-evalutation: 10/03/18 16:52 Patient does complain of dry mouth with increased salty taste that is worse with food or drink. Patient was recently started on Cymbalta 1 month ago and this medication is known to cause dry mouth as well as dysgeusia. Patient does have an appointment to follow-up with her primary doctor in a week. Patient advised that it is not safe to typically abruptly discontinue medications. Patient encouraged to see her primary doctor to discuss her symptoms and for follow-up. Review of up-to-date does recommend does recommend Klonopin 0.5 mg at bedtime once daily to help with symptoms. She will also be advised to use Biotene [id number] to help with the dry mouth sensation. - Vital Signs Vital signs: Temp Pulse Resp BP Pulse Ox 98.1 F 89 16 103/66 97 10/03/18 14:17 10/03/18 14:17 10/03/18 14:17 10/03/18 14:17 10/03/18 14:17 Discharge - Discharge Clinical Impression: Dysgeusia, Mouth dryness Condition: Stable Disposition: HOME, SELF-CARE Additional Instructions: Return immediately for any new or worsening symptoms Followup with your primary care provider, they may need to adjust her medi cations. Use Biotene [id number] to help with dry mouth symptoms Prescriptions: Clonazepam [Klonopin] 0.5 mg PO QHS PRN #7 tablet PRN Reason: Referrals: KEVIN MCQUEEN NP [Primary Care Provider] - Follow up as needed
[2018-10-03 17:07] VITALS: BP 101/66
== END 2018-10-03 17:15 | disposition home or self-care (01) ==
LOC: ER 14:03
DX: R43.2 Parageusia (principal); R68.2 Dry mouth, unspecified
CPT/HCPCS: 82962; 99283

== ENCOUNTER 2018-11-09 17:47 | Emergency (ER) | payer MEDICAID ==
[2018-11-09] MEDS ORDERED: LIDOCAINE 5% (700 MG) TRANSDERMAL ADH..PATCH TP ONE (19:03)
[2018-11-09] MEDS ORDERED: KETOROLAC TROMETHAMINE 60 MG/2 ML SDV IM ONE (19:05)
--- NOTE | 2018-11-09 19:13 | ER Document Report ---
HPI - HPI Time Seen by Provider: 11/09/18 18:56 Pain Level: 4 Notes: Patient is a 43-year-old female with no significant past medical history who presents to the ED complaining of bilateral mid back pain x2 days without obvious injury. Patient states that bending twisting of the trunk make his pain worse. Pain will radiate down both sides of spine into lower back. She is eating and drinking without any difficulties. She is urinating normally and having normal bowel movements. She has not had any injections or procedures to his lower back and no h/o spinal abscess/DM. Denies any IV drug abuse. No other concerns or complaints. Denies any headache, fever, neck pain, URI, sore throat, chest pain, palpitations, syncope, cough, shortness of breath, wheeze, dyspnea, abdominal pain, nausea/vomiting/diarrhea, urinary retention, dysuria, hematuria, loss of control of bowel or bladder, numbness/tingling, saddle anesthesia, muscle paralysis/weakness, or rash. - ROS Systems Reviewed and Negative: Yes All other systems reviewed and negative - REPRODUCTIVE Reproductive: DENIES: : Past Medical History - Social History Smoking Status: Never Smoker Family History: Arthritis, CAD, CVA, DM, Hyperlipidemia, Hypertension, Malignancy Pulmonary Medical History: Reports: Hx Pneumonia Neurological Medical History: Reports: Hx Migraine, Hx Seizures Renal/ Medical History: Reports: Hx Ovarian Cysts. Denies: Hx Peritoneal Dialysis Psychiatric Medical History: Reports: Hx Depression Past Surgical History: Reports: Hx Section - 3, Hx Hysterectomy - Immunizations Immunizations up to date: Yes Hx Diphtheria, Pertussis, Tetanus Vaccination: Yes Vertical Provider Document - CONSTITUTIONAL Agree With Documented VS: Yes Notes: PHYSICAL EXAMINATION: GENERAL: Well-appearing, well-nourished and in no acute distress. LUNGS: Breath sounds clear to auscultation bilaterally and equal. No wheezes rales or rhonchi. HEART: Regular rate and rhythm without murmurs, rubs, gallops. ABDOMEN: Soft, nontender, nondistended abdomen. No guarding, no rebound. No masses appreciated. Normal bowel sounds present. No CVA tenderness bilaterally. No pulsatile mass Musculoskeletal: LE's b/l: FROM to passive/active. Strength 5+/5. No deficits noted. No bony tenderness of extremities. Back: FROM to passive/active. Strength 5+/5. No vertebral point tenderness, stepoffs, or deformities. No other bony tenderness, erythema, swelling, or ecchymosis. SLR negative b/l. + mild tenderness to the T-paraspinal mm b/l with trigger point noted that reproduces symptoms. No SI jt tenderness. No darnell t drop Extremities: No cyanosis, clubbing, or edema b/l. Peripheral pulses 2+. Capillary refill less than 2 seconds. NEUROLOGICAL: Normal speech, normal gait. Normal sensory, motor exams. Refle xes 2+ b/l. PSYCH: Normal mood, normal affect. SKIN: Warm, Dry, normal turgor, no rashes or lesions noted. - INFECTION CONTROL TRAVEL OUTSIDE OF THE [place] IN LAST 30 DAYS: No Course - Re-evaluation Re-evalutation: 11/09/18 Patient is an afebrile, well-hydrated, 43-year-old female who presents to the ED with bilateral thoracic back pain with trigger points/spasms noted. Vitals are acceptable. PE is otherwise unremarkable for any focal neurological deficits. Patient was given Toradol and Lidoderm patch. She has no significant tachycardia, tachypnea, or hypoxia. She is nontoxic-appearing and is tolerating p.o. without difficulties. There are no signs of infection. No other red flag symptoms noted. No other labs or imaging warranted at this time based on H&P. Low suspicion for any meningitis, fracture, expanding/ruptured AAA, cauda equina syndrome, epidural mass lesion/abscess, herniated disc causing severe spinal stenosis, or other systemic infection at this time. Patient is aware that this condition can change from initial presentation and that she needs monitor sym ptoms closely for any acute changes. I will send her home with a prescription for flexeril and naproxen. Conservative measures otherwise for symptoms. Recheck with your PCM in 3-5 days. Consider consult with orthopedic/physical therapy. Return to the ED with any worsening/concerning symptoms otherwise as reviewed discharge. Patient is in agreement. Discharge - Discharge Clinical Impression: Bilateral thoracic back pain Qualifiers: Chronicity: acute Qualified Code(s): M54.6 - Pain in thoracic spine Condition: Stable Disposition: HOME, SELF-CARE Instructions: Muscle Relaxers ([facility]) Additional Instructions: Rest, Ice Tylenol/ibuprofen as needed Light stretches daily Strength exercises as able Moist heat and massage may help F/u with your PCP in 3-5 days for a recheck Consider consult(s) with Orthopedics/physical therapy for ongoing/worsening symptoms Return to the ED with any worsening symptoms and/or development of fever, headache, chest pain, palpitations, syncope, shortness of breath, trouble breathing, abdominal pain, n/v/d, blood in stool/urine, loss of control of bowel/bladder, urinary retention, muscle weakness/paralysis, saddle anesthesia, numbness/tingling, or other worsening symptoms that are concerning to you. Prescriptions: Cyclobenzaprine HCl [Flexeril 10 mg Tablet] 10 mg PO TIDP PRN #15 tab PRN Reason: Naproxen 500 mg PO BID #10 tablet Referrals: KEVIN MCQUEEN NP [Primary Care Provider] - Follow up as needed [facility] [Provider Group] - Follow up as needed
== END 2018-11-09 20:00 | disposition home or self-care (01) ==
LOC: ER 17:47
DX: M54.6 Pain in thoracic spine (principal); M54.9 Dorsalgia, unspecified; M54.5 Low back pain
CPT/HCPCS: 99283; 96372; J1885; J3490

== ENCOUNTER 2018-12-04 04:08 | Emergency (ER) | payer MEDICAID ==
--- NOTE | 2018-12-04 06:44 | ER Document Report ---
ED General - General Chief Complaint: Back Pain Stated Complaint: BACK PAIN Time Seen by Provider: 12/04/18 06:22 Primary Care Provider: KEVIN MCQUEEN NP [Primary Care Provider] - Follow up in 3-5 days Notes: Patient is a 43-year-old female with fibromyalgia and lupus that presents to the emergency department for chief complaint of low back pain. Patient states that she woke up with the pain yesterday morning, she had been doing some moving of clothing the day before, she states she does occasionally get flares of her fibromyalgia as well as lupus, usually it is in her lower back. She has taken Flexeril in the past, but does not have this medication currently, she did try taking naproxen without much relief of her pain so she decided to come to the emergency department. She describes her pain is constant and a 9 out of 10 currently. Denies any pain radiating down the leg, denies any difficulty walking, weakness, or loss of bowel or bladder function. She also denies having any urinary retention. Denies any history of trauma. Past Medical History: Fibromyalgia, epilepsy, lupus Past Surgical History: Hysterectomy, x3 Social History: Denies current tobacco, alcohol or drug use. Family History: Reviewed and noncontributory for presenting illness Allergies: Reviewed, see documented allergy list. REVIEW OF SYSTEMS: Other than noted above, the 12 point review of systems was reviewed with the patient and were negative, all pertinent findings are included in the HPI. PHYSICAL EXAMINATION: Vital signs reviewed, nursing noted reviewed. GENERAL: Patient appears uncomfortable, but in no acute distress. HEAD: Atraumatic, normocephalic. EYES: Eyes appear normal, extraocular movements intact, sclera anicteric, conjunctiva are normal. ENT: nares patent, oropharynx clear without exudates. Moist mucous membranes. NECK: Normal range of motion, supple without lymphadenopathy LUNGS: Breath sounds clear to auscultation bilaterally and equal. No wheezes rales or rhonchi. HEART: Regular rate and rhythm without murmurs ABDOMEN: Soft, nontender, normoactive bowel sounds. No rebound, guarding, or rigidity. No masses appreciated. EXTREMITIES: Nontender, good range of motion, no pitting or edema. Back: Paraspinal tenderness with palpation to the thoracolumbar junction distally to the lumbar spine, no midline tenderness, no step-off or deformity. No significant limitation in range of motion with flexion, extension, side bending or rotation. NEUROLOGICAL: No focal neurological deficits. Moves all extremities spontaneously Motor and sensory grossly intact on exam. Deep tendon reflexes 2/4 in the patellar and Achilles tendons. PSYCH: Normal mood, normal affect. SKIN: Warm, Dry, normal turgor, no rashes or lesions noted on exposed skin TRAVEL OUTSIDE OF THE [place] IN LAST 30 DAYS: No - Related Data Allergies/Adverse Reactions: tramadol Allergy (Verified 11/09/18 17:51) Past Medical History - Social History Smoking Status: Unknown if Ever Smoked Chew tobacco use (# tins/day): No Frequency of alcohol use: None Drug Abuse: None Family History: Arthritis, CAD, CVA, DM, Hyperlipidemia, Hypertension, Malignancy Patient has suicidal ideation: No Patient has homicidal ideation: No Pulmonary Medical History: Reports: Hx Pneumonia Neurological Medical History: Reports: Hx Migraine, Hx Seizures Renal/ Medical History: Reports: Hx Ovarian Cysts. Denies: Hx Peritoneal Dialysis Psychiatric Medical History: Reports: Hx Depression Past Surgical History: Reports: Hx Section - 3, Hx Hysterectomy - Immunizations Immunizations up to date: Yes Hx Diphtheria, Pertussis, Tetanus Vaccination: Yes Physical Exam - Vital signs Vitals: Temp Pulse Resp BP Pulse Ox 97.9 F 102 H 18 109/76 100 12/04/18 04:14 12/04/18 04:14 12/04/18 04:14 12/04/18 04:14 12/04/18 04:14 Course - Re-evaluation Re-evalutation: Patient seen and examined vital signs reviewed. Patient was evaluated and treated as appropriate for the patient's presenting symptoms and complaint, with consideration of any critical or life threatening conditions that may be associated with their obtained history and exam as noted above. Patient was treated with IM Toradol, and p.o. Robaxin The patient was re-evaluated and was stable and improved Evaluation was most consistent with low back pain, most likely either flare of fibromyalgia, muscular skeletal nature, patient did not have any concerning signs for condition such as cauda equina syndrome, conus medullaris. Will discharge her home with prednisone for 5 days, Robaxin, and advised that she can take her naproxen as well. Plan of care was discussed with the patient at this point, after careful consideration I feel that that patient can be discharged from the emergency department, the patient was educated treatments and reasons to return to the emergency department based on their presumed diagnosis as noted above, they were advised to followup with a primary care physician in 2-3 days. Patient was agreeable to plan of care. *Note is created using voice recognition software and may contain spelling, syntax or grammatical errors. - Vital Signs Vital signs: Temp Pulse Resp BP Pulse Ox 98.7 F 84 18 96/66 L 97 12/04/18 07:28 12/04/18 07:28 12/04/18 07:28 12/04/18 07:28 12/04/18 07:28 Discharge - Discharge Clinical Impression: Low back pain Qualifiers: Chronicity: unspecified Back pain laterality: bilateral Sciatica presence: without sciatica Qualified Code(s): M54.5 - Low back pain Condition: Stable Disposition: HOME, SELF-CARE Instructions: Low Back Pain ([facility]) Additional Instructions: Please follow-up with your primary care physician, take all medications as prescribed. If your symptoms worsen or you develop loss of bowel or bladder function, please return to the emergency department immediately. Prescriptions: Methocarbamol [Robaxin 750 mg Tablet] 750 mg PO Q6H PRN #20 tablet PRN Reason: back pain RX: Prednisone [Deltasone 10 mg Tablet] 40 mg PO DAILY #20 tablet Referrals: KEVIN MCQUEEN NP [Primary Care Provider] - Follow up in 3-5 days
[2018-12-04] MEDS ORDERED: KETOROLAC TROMETHAMINE 60 MG/2 ML SDV IM ONE (06:49)
[2018-12-04] MEDS ORDERED: METHOCARBAMOL 750 MG TABLET PO ONE (06:49)
[2018-12-04 07:28] VITALS: BP 96/66
== END 2018-12-04 07:28 | disposition home or self-care (01) ==
LOC: ER 04:08
DX: M54.5 Low back pain (principal); M54.9 Dorsalgia, unspecified; M79.7 Fibromyalgia; Z79.899 Other long term (current) drug therapy
CPT/HCPCS: 99283; 96372; J1885; J3490

== ENCOUNTER 2019-03-27 04:36 | Emergency (ER) | payer MEDICAID ==
[2019-03-27 04:43] VITALS: BP 105/77
[2019-03-27] MEDS ORDERED: DEXAMETHASONE SOD PHOS INJ 10 MG/1 ML VIAL IM ONE (05:34)
[2019-03-27] MEDS ORDERED: DIAZEPAM INJ 10 MG/2 ML DISP.SYRIN IM ONE (05:34)
--- NOTE | 2019-03-27 05:36 | ER Document Report ---
HPI - HPI Time Seen by Provider: 03/27/19 05:15 Pain Level: 4 Context: Patient is a 43-year-old female that comes to the emergency department for chief complaint of back pain. She states that she has been treated for back pain before, she went to pain management, she was prescribed Lyrica, she states that over the past day she could not get comfortable and she could not sleep tonight because her back pain was worse. She denies injury. She denies history of injury or surgery on her back. She states she was told that she probably has fibromyalgia. She also reports a history of epilepsy menses treated with Keppra), and hysterectomy. Her home medications also include Cymbalta and Seroquel. She states she took naproxen at home but it did not significantly help. She denies numbness, inability to urinate, loss of control of her bowels, fever/chills, ever using IV drugs. She denies any other locations of pain. - REPRODUCTIVE Reproductive: DENIES: : Past Medical History - General Information source: Patient - Social History Smoking Status: Never Smoker Frequency of alcohol use: None Drug Abuse: None Lives with: Family Family History: Arthritis, CAD, CVA, DM, Hyperlipidemia, Hypertension, Malignancy Pulmonary Medical History: Reports: Hx Pneumonia Neurological Medical History: Reports: Hx Migraine, Hx Seizures Renal/ Medical History: Reports: Hx Ovarian Cysts. Denies: Hx Peritoneal Dialysis Musculoskeletal Medical History: Reports Hx Fibromyalgia Psychiatric Medical History: Reports: Hx Depression Past Surgical History: Reports: Hx Section - 3, Hx Hysterectomy - Immunizations Immunizations up to date: Yes Hx Diphtheria, Pertussis, Tetanus Vaccination: Yes Vertical Provider Document - CONSTITUTIONAL General Appearance: WD/WN, No Apparent Distress - INFECTION CONTROL TRAVEL OUTSIDE OF THE [place] IN LAST 30 DAYS: No - HEENT HEENT: Atraumatic, Normal ENT Exam, Normocephalic - NECK Neck: Normal Inspection - RESPIRATORY Respiratory: Breath Sounds Normal, No Respiratory Distress - CARDIOVASCULAR Cardiovascular: Regular Rate, Regular Rhythm - GI/ABDOMEN Gastrointestinal: Abdomen Soft, Abdomen Non-Tender - BACK Back: negative: Normal Inspection - Tenderness in the left lower paralumbar area; no midline tenderness, no saddle anesthesia, no signs of trauma. Normal upper and lower extremity range of motion, normal strength, normal distal neurovascular exam. - MUSCULOSKELETAL/EXTREMETIES Musculoskeletal/Extremeties: SARAH DAVID, Non-Tender - NEURO Level of Consciousness: Awake, Alert, Appropriate Motor/Sensory: No Motor Deficit, No Sensory Deficit - DERM Integumentary: Warm, Dry, No Rash Course - Re-evaluation Re-evalutation: Patient also denies any urinary symptoms. She does have point tenderness in the left lower lumbar area which is easily reproducible and worse with movement. There is no midline tenderness, neurological deficit, or concerning reported symptoms. I discussed imaging history of patient, she is never had any, however she declines because she states she already has an x-ray and an MRI scheduled with her pain management provider. Vital signs unremarkable, patient is actually quite well-appearing, patient given dexamethasone, dose of muscle relaxer, provided with muscle relaxer prescription for home. This was discussed with patient before hand. Discussed follow-up and return precautions. Patient states understanding and agreement. - Vital Signs Vital signs: Temp Pulse Resp BP Pulse Ox 97.9 F 80 105/77 99 03/27/19 04:42 03/27/19 04:42 03/27/19 04:42 03/27/19 04:42 Discharge - Discharge Clinical Impression: Lower back pain Qualifiers: Chronicity: acute Back pain laterality: left Sciatica presence: without sciatica Qualified Code(s): M54.5 - Low back pain Condition: Stable Disposition: HOME, SELF-CARE Additional Instructions: Your evaluation is consistent with muscle strain and spasm without sciatica. You have been medicated for this, apply heat to the area, continue your naproxen, take muscle relaxer as prescribed, symptoms should improve with time. Follow-up with your provider and pain management for additional treatment and imaging. Return if you worsen including fever, numbness, inability to control your bowel or bladder, severe worsening pain, or any other concerning or worsening symptoms. Prescriptions: Methocarbamol [Robaxin-750] 750 mg PO QID PRN #20 tablet PRN Reason: Referrals: KEVIN MCQUEEN NP [Primary Care Provider] - Follow up as needed
== END 2019-03-27 06:37 | disposition home or self-care (01) ==
LOC: ER 04:36
DX: M54.5 Low back pain (principal); M54.9 Dorsalgia, unspecified; Z79.899 Other long term (current) drug therapy
CPT/HCPCS: 99283; 96372; J3360; J1100

== ENCOUNTER 2019-04-30 01:51 | Emergency (ER) | payer MEDICAID ==
[2019-04-30] MEDS ORDERED: HYDROCODONE/ACETAMINOPHEN 5-325 MG TABLET PO ONE (05:42)
[2019-04-30] MEDS ORDERED: KETOROLAC TROMETHAMINE INJ/PF 30 MG/1 ML SDV IV ONE (05:42)
[2019-04-30] MEDS ORDERED: DEXAMETHASONE SOD PHOS INJ 10 MG/1 ML VIAL IV ONE (05:42)
[2019-04-30] MEDS ORDERED: METHOCARBAMOL 750 MG TABLET PO ONE (05:43)
--- NOTE | 2019-04-30 06:25 | ER Document Report ---
ED General - General Chief Complaint: Back Pain Stated Complaint: BACK PAIN Time Seen by Provider: 04/30/19 05:04 Primary Care Provider: KEVIN MCQUEEN NP [Primary Care Provider] - Follow up as needed Mode of Arrival: Ambulatory Information source: Patient, Relative TRAVEL OUTSIDE OF THE [place] IN LAST 30 DAYS: No - HPI Notes: Patient has a history of chronic lower back pain, states she may have fibromyalgia, reports having prior MRI evidence of bulging disks, presents with report that she bent over last evening to pick a shirt up off the floor and heard and felt a loud pop in her lower back. This caused her to go down to the floor and she was incontinent of urine and reports severe pain and weakness in the left leg since that time. The patient denies any right leg symptoms. The patient reports no abdominal pain or chest pain or difficulty breathing. She denies any numbness. Patient is a non-smoker. She also reports history of chronic pain and issues in her neck, none of which are worse today. Prior hysterectomy. No history of back surgery. - Related Data Allergies/Adverse Reactions: tramadol Allergy (Verified 11/09/18 17:51) Past Medical History - Social History Smoking Status: Never Smoker Frequency of alcohol use: None Drug Abuse: None Lives with: Family Family History: Arthritis, CAD, CVA, DM, Hyperlipidemia, Hypertension, Malignancy Patient has suicidal ideation: No Patient has homicidal ideation: No Pulmonary Medical History: Reports: Hx Pneumonia Neurological Medical History: Reports: Hx Migraine, Hx Seizures Renal/ Medical History: Reports: Hx Ovarian Cysts. Denies: Hx Peritoneal Dialysis Musculoskeletal Medical History: Reports Hx Fibromyalgia Psychiatric Medical History: Reports: Hx Depression Past Surgical History: Reports: Hx Section - 3, Hx Hysterectomy - Immunizations Immunizations up to date: Yes Hx Diphtheria, Pertussis, Tetanus Vaccination: Yes Review of Systems - Review of Systems -: Yes All other systems reviewed and negative Physical Exam - Vital signs Vitals: Temp Pulse Resp BP Pulse Ox 97.3 F 88 17 97/64 L 99 04/30/19 02:06 04/30/19 02:06 04/30/19 02:06 04/30/19 02:06 04/30/19 02:06 - Notes Notes: PHYSICAL EXAMINATION: GENERAL: Mildly obese female in moderate discomfort.. HEAD: Atraumatic, normocephalic. EYES: Pupils equal round and reactive to light, extraocular movements intact, conjunctiva are normal. ENT: Nares patent, oropharynx clear without exudates. Moist mucous membranes. NECK: Normal range of motion, supple without lymphadenopathy LUNGS: Breath sounds clear to auscultation bilaterally and equal. No wheezes rales or rhonchi. HEART: Regular rate and rhythm without murmurs ABDOMEN: Soft, nontender, nondistended abdomen. No guarding, no rebound. No masses appreciated. Female : deferred Musculoskeletal: no pitting or edema. No cyanosis. Patient has pain significantly along L3-4-5 left greater than right paraspinal region extending down in L4-5 distribution down the left leg. NEUROLOGICAL: Cranial nerves grossly intact. Normal sensory exam. Patient has normal reflexes. I am unable to appreciate any saddle anesthesia. There is no radiation of pain down the right leg. There is no pain reproduction contralaterally when the right straight leg raise test is performed. There is pain reproduction with attempt at left lower extremity straight leg raise test. On motor testing the patient has significant weakness through the left lower extremity, but it is difficult to ascertain if this is secondary to pain and apprehension. The patient measures a 4-/5 motor strength exam on the left as compared to 5/5 on the right. PSYCH: Anxious. SKIN: Warm, Dry, normal turgor, no rashes or lesions noted. Course - Re-evaluation Re-evalutation: 04/30/19 06:25 Patient was given IV Decadron and Toradol and given p.o. Robaxin and [place]. MRI of the lumbar spine is ordered, although the findings of cauda equina and significant radiculopathy are somewhat questionable given the history and physical exam as described. Care turned over to Dr. Rasmussen pending radiology results at 0 600. - Vital Signs Vital signs: Temp Pulse Resp BP Pulse Ox 97.3 F 88 17 97/64 L 99 04/30/19 02:06 04/30/19 02:06 04/30/19 02:06 04/30/19 02:06 04/30/19 02:06 Discharge - Discharge Clinical Impression: Lumbar radiculopathy Back pain Qualifiers: Back pain location: low back pain Chronicity: acute Back pain laterality: left Sciatica presence: with sciatica Sciatica laterality: sciatica of left side Qualified Code(s): M54.42 - Lumbago with sciatica, left side Urinary incontinence Qualifiers: Urinary Incontinence type: unspecified incontinence Qualified Code(s): R32 - Unspecified urinary incontinence Disposition: OTHER Referrals: KEVIN MCQUEEN NP [Primary Care Provider] - Follow up as needed
[2019-04-30] MEDS ORDERED: LORAZEPAM INJ 2 MG/1 ML VIAL IV ONE (07:18)
--- NOTE | 2019-04-30 08:46 | RADIOLOGY REPORT (SQ) ---
EXAM DESCRIPTION: MRI LUMBAR SPINE COMBO COMPLETED DATE/TIME: 04/30/2019 8:24 am REASON FOR STUDY: incontinence, lower back pain, L leg weakness COMPARISON: None. TECHNIQUE: Sagittal and Axial imaging includes T1, T1 post gadolinium, T2, STIR and gradient echo se quences. Coronal T2/HASTE imaging. CONTRAST TYPE AND DOSE: 15 mL Dotarem. RENAL FUNCTION: Not indicated. ACR Type II contrast agent associated with few, if any, unconfounded cases of NSF LIMITATIONS: None. FINDINGS: VISUALIZED UPPER ABDOMEN: Limited evaluation. No acute or suspicious findings suggested. SEGMENTATION: No transitional anatomy. The lowest well-developed disc space is labeled L5-S1. ALIGNMENT: Anatomic. VERTEBRAE: Intact. No fractures. BONE MARROW: Normal. No marrow replacement or reactive changes. DISC SIGNAL: Generally mild disc desiccation and height loss without significant disc bulge, protrusi on, or extrusion. POSTERIOR ELEMENTS: Generally intact. No pars defect evident. HARDWARE: None in the spine. CORD AND CONUS: Normal in size and signal intensity. Conus at the appropriate level. SOFT TISSUES: No aortic aneurysm seen. No bulky retroperitoneal adenopathy or mass. No paraspinal mas s or fluid. L1-L2: No significant spinal stenosis or exit foraminal stenosis. L2-L3: No significant spinal stenosis or exit foraminal stenosis. L3-L4: No significant spinal stenosis or exit foraminal stenosis. L4-L5: No significant spinal stenosis or exit foraminal stenosis. L5-S1: No significant spinal stenosis or exit foraminal stenosis. LOWER THORACIC: Incompletely imaged. No stenosis seen. SACRUM: Visualized upper sacrum intact. ENHANCEMENT: No abnormal enhancement. OTHER: No other significant findings. IMPRESSION: Mild lumbar disc desiccation without significant bulge, protrusion, or extrusion. There is no abnormal contrast enhancement. No findings in the lumbar spine to explain motor symptoms. TECHNICAL DOCUMENTATION: JOB ID: [id number] [employer]- All Rights Reserved Reading location - IP/workstation name: [email or web address]
[2019-04-30 09:03] LABS: APPEARANCE,URINE CLEAR; BILIRUBIN,URINE NEGATIVE (NEGATIVE); COLOR,URINE YELLOW; GLUCOSE, URINE NEGATIVE (NEGATIVE); KETONES,URINE NEGATIVE (NEGATIVE); LEUKOCYTE ESTERASE,URINE TRACE (NEGATIVE); NITRITE,URINE NEGATIVE (NEGATIVE); PROTEIN,URINE NEGATIVE (NEGATIVE); URINE SPECIFIC GRAVITY 1.013; UROBILINOGEN,URINE NEGATIVE mg/dL (<2.0)
[2019-04-30 09:23] VITALS: BP 99/62
== END 2019-04-30 09:25 | disposition other institution (70) ==
LOC: ER 01:51
DX: M54.42 Lumbago with sciatica, left side (principal); R32 Unspecified urinary incontinence; Z90.710 Acquired absence of both cervix and uterus
CPT/HCPCS: 99284; 96374; 96375; 81001; 72158; A9576; J3490; J1885; J2060; J1100

== ENCOUNTER 2019-06-21 10:51 | Emergency (ER) | payer MEDICAID ==
[2019-06-21 12:01] LABS: ABSOLUTE LYMPHOCYTES (AUTO) 1.5 10^3/uL (0.5-4.7); ABSOLUTE MONOCYTES (AUTO) 0.3 10^3/uL (0.1-1.4); HEMOGLOBIN 11.6 g/dL (12.0-15.5); MEAN CORPUSCULAR VOLUME 86 fl (80-97); SEGMENTED NEUTROPHILS % (AUTO) 49.9 % (42-78); TOTAL CELLS COUNTED % (AUTO) 100 %
[2019-06-21 12:05] LABS: ABSOLUTE NEUT (AUTO) 1.8 10^3/uL (1.7-8.2); EOSINOPHILS % (AUTO) 1.3 % (0-6); MEAN CORPUSCULAR HEMOGLOBIN 27.7 pg (27.0-33.4); MEAN CORPUSCULAR HGB CONC 32.2 g/dL (32.0-36.0); MONOCYTES % (AUTO) 7.8 % (3-13); PLATELET COUNT 275 10^3/uL (150-450); RED BLOOD COUNT 4.19 10^6/uL (3.72-5.28); RED CELL DISTRIBUTION WIDTH 14.1 % (11.5-14.0); WHITE BLOOD COUNT 3.6 10^3/uL (4.0-10.5)
[2019-06-21 12:19] LABS: ANION GAP 8 (5-19); BLOOD UREA NITROGEN 20 mg/dL (7-20); CALCIUM 9.7 mg/dL (8.4-10.2); CARBON DIOXIDE 28 mmol/L (22-30); CHLORIDE 109 mmol/L (98-107); GLUCOSE 93 mg/dL (75-110); POTASSIUM 4.2 mmol/L (3.6-5.0)
[2019-06-21] MEDS ORDERED: DIAZEPAM INJ 10 MG/2 ML DISP.SYRIN IV ONE (14:50)
[2019-06-21 14:56] LABS: ALBUMIN 4.2 g/dL (3.5-5.0); ALKALINE PHOSPHATASE 73 U/L (38-126); ASPARTATE AMINO TRANSFERASE 29 U/L (14-36); BILIRUBIN,DIRECT 0.1 mg/dL (0.0-0.4); BILIRUBIN,TOTAL 0.3 mg/dL (0.2-1.3)
[2019-06-21] MEDS ORDERED: NORMAL SALINE 1000 ML 1,000 ML IV ONE (15:14)
[2019-06-21] MEDS ORDERED: ONDANSETRON HCL INJ/PF 4 MG/2 ML SDV IV ONE (15:14)
--- NOTE | 2019-06-21 15:14 | ER Document Report ---
ED General - General Chief Complaint: Abdominal Pain Stated Complaint: VOMITING/DIZZINESS/NAUSEA Time Seen by Provider: 06/21/19 14:13 Primary Care Provider: KEVIN MCQUEEN NP [Primary Care Provider] - Follow up as needed Notes: HPI: Patient is a 43-year-old female who presents today stating about 4 days ago she started to have episodes of "dizziness" described as "the room spinning". She states she also had some intermittent nausea and vomiting. She denies any and all headache, blurry vision, neck pain, chest pain, palpitations, or any and all abdominal pain on my interview. No dysuria or diarrhea. No fevers, runny nose, congestion, recent upper respiratory tract infections. No tinnitus or fullness to the ears. She denies any symptomatology when laying still. ROS: See HPI All other review of systems reviewed and otherwise negative Reviewed vital signs and nursing note as charted by RN. PHYSICAL EXAM: CONSTITUTIONAL: Alert and oriented and responds appropriately to questions. Well-appearing; well-nourished HEAD: Normocephalic; atraumatic EYES: PERRL; full extraocular range of motion without nystagmus ENT: Normal nose; no rhinorrhea; moist mucous membranes; pharynx without lesions noted NECK: Supple without meningismus; non-tender; no cervical lymphadenopathy, no masses CARD: Regular rate and rhythm; no murmurs; symmetric distal pulses RESP: Normal chest excursion without splinting or tachypnea; breath sounds clear and equal bilaterally; no wheezes, no rhonchi, no rales ABD/GI: Normal bowel sounds; non-distended; soft, non-tender to deep palpation of all 4 quadrants of the abdomen; no palpable organomegaly or masses BACK: The back appears normal and is non-tender to palpation EXT: Normal ROM in all joints; non-tender to palpation; no edema SKIN: No acute lesions noted NEURO: CN 2-12 intact; 5/5 bilateral upper and lower extremity strength with sensation intact to light touch; normal [id number] bilaterally PSYCH: The patient's mood and manner are appropriate. Grooming and personal hygiene are appropriate. TRAVEL OUTSIDE OF THE [place] IN LAST 30 DAYS: No - Related Data Allergies/Adverse Reactions: tramadol Allergy (Verified 11/09/18 17:51) Past Medical History - Social History Smoking Status: Never Smoker Family History: Arthritis, CAD, CVA, DM, Hyperlipidemia, Hypertension, Malignancy Patient has suicidal ideation: No Patient has homicidal ideation: No Pulmonary Medical History: Reports: Hx Pneumonia Neurological Medical History: Reports: Hx Migraine, Hx Seizures Renal/ Medical History: Reports: Hx Ovarian Cysts. Denies: Hx Peritoneal Dialysis Musculoskeletal Medical History: Reports Hx Fibromyalgia Psychiatric Medical History: Reports: Hx Depression Past Surgical History: Reports: Hx Section - 3, Hx Hysterectomy - Immunizations Immunizations up to date: Yes Hx Diphtheria, Pertussis, Tetanus Vaccination: Yes Physical Exam - Vital signs Vitals: Temp Pulse Resp BP Pulse Ox 97.9 F 96 18 125/80 100 06/21/19 11:21 06/21/19 11:21 06/21/19 11:21 06/21/19 11:21 06/21/19 11:21 Course - Re-evaluation Re-evalutation: 06/21/19 15:13 Given the above history and physical we will obtain basic labs, provide electrolytes, provide Valium, and reassess. Patient has no finger-nose abnormality, focal deficits, and no gait disturbance. No headache or blurry vision. 06/21/19 16:32 Imaging and labs as recorded. Patient still has no focal neurological deficits. She has not vomited here. She does feel better. Nitrite positive urine analysis. Urine culture has been sent. Fluids and antibiotics have been provided. Patient still has no abdominal tenderness. Given the above history and physical, I will provide a short course of Valium as needed as well as provide a prescription for Keflex and nausea medications. Strict return precautions have been explained. - Vital Signs Vital signs: Temp Pulse Resp BP Pulse Ox 97.9 F 96 18 125/80 100 06/21/19 11:21 06/21/19 11:21 06/21/19 11:21 06/21/19 11:21 06/21/19 11:21 - Laboratory Result Diagrams: 06/21/19 11:41 06/21/19 11:41 Laboratory results interpreted by me: 06/21/19 06/21/19 06/21/19 11:41 11:41 14:58 WBC 3.6 L Hgb 11.6 L RDW 14.1 H Chloride 109 H Urine Nitrite POSITIVE H Discharge - Discharge Clinical Impression: Lightheadedness Urinary tract infection Qualifiers: Urinary tract infection type: acute cystitis Hematuria presence: without hematuria Qualified Code(s): N30.00 - Acute cystitis without hematuria Vomiting Qualifiers: Vomiting type: unspecified Vomiting Intractability: non-intractable Nausea presence: with nausea Qualified Code(s): R11.2 - Nausea with vomiting, unspecified Condition: Good Disposition: HOME, SELF-CARE Additional Instructions: Come back immediately with any return of vomiting, abdominal discomfort, fevers, back pain, headache, weakness or numbness, gait instability, or any other acute problems. Please make sure that you take the antibiotics as prescribed, take Valium as needed for any spinning-like feeling, and follow-up with your primary care physician for reevaluation of your condition and the urine culture. Prescriptions: Cephalexin Monohydrate [Keflex 500 mg Capsule] 500 mg PO Q6H 7 Days #28 capsule Diazepam [Valium 5 mg Tablet] 5 mg PO QIDP PRN #5 tablet PRN Reason: Ondansetron [Zofran Odt 4 mg Tablet] 1 tab PO Q6H #15 tab.rapdis Referrals: KEVIN MCQUEEN NP [Primary Care Provider] - Follow up as needed
[2019-06-21 15:27] LABS: APPEARANCE,URINE CLEAR; BILIRUBIN,URINE NEGATIVE (NEGATIVE); COLOR,URINE YELLOW; GLUCOSE, URINE NEGATIVE (NEGATIVE); KETONES,URINE NEGATIVE (NEGATIVE); LEUKOCYTE ESTERASE,URINE NEGATIVE (NEGATIVE); NITRITE,URINE POSITIVE (NEGATIVE); PROTEIN,URINE NEGATIVE (NEGATIVE); URINE SPECIFIC GRAVITY 1.023; UROBILINOGEN,URINE NEGATIVE mg/dL (<2.0)
[2019-06-21] MEDS ORDERED: CEFTRIAXONE 1 GM/D5W RTU 1 GM/50 ML RTUPB IV ONE (16:23)
[2019-06-21 17:27] VITALS: BP 127/70
== END 2019-06-21 17:43 | disposition home or self-care (01) ==
LOC: ER 10:51
DX: N30.00 Acute cystitis without hematuria (principal); R11.2 Nausea with vomiting, unspecified; R42 Dizziness and giddiness; R10.9 Unspecified abdominal pain; Z90.710 Acquired absence of both cervix and uterus; Z88.6 Allergy status to analgesic agent
CPT/HCPCS: 36415; 83690; 85025; 80076; 80048; 81001; J3360; J2405; J7030; J0696; 96361; 96374; 96375; 99284

== ENCOUNTER 2019-06-26 23:38 | Emergency (ER) | payer MEDICAID ==
[2019-06-27] MEDS ORDERED: MECLIZINE HCL 25 MG TABLET PO ONE (00:24)
[2019-06-27] MEDS ORDERED: ONDANSETRON HCL INJ/PF 4 MG/2 ML SDV IV ONE (00:24)
[2019-06-27] MEDS ORDERED: NORMAL SALINE 1000 ML 1,000 ML IV ONE (00:25)
--- NOTE | 2019-06-27 00:27 | ER Document Report ---
ED General - General Chief Complaint: Arm Pain Stated Complaint: DIZZINESS Time Seen by Provider: 06/27/19 00:13 Primary Care Provider: KEVIN MCQUEEN NP [Primary Care Provider] - Follow up as needed Notes: Patient is a 43-year-old female that comes emergency department for chief complaint of left shoulder pain and left arm pain, she also states that she is still getting intermittent dizziness which she describes as a spinning sensation, she also reports intermittent nausea. She states she had vomiting as well, she was seen for this 4 days ago and prescribed Valium and placed on Keflex for possible UTI. Patient denies headache, blurry vision, neck pain, chest pain, palpitations, abdominal pain, and she has not vomited for the past 2 days. Denies congestion, runny nose, recent upper respiratory infection, fever. She denies ringing in the ears or fullness in the ears, denies ear pain, denies dysuria or abdominal pain. Is when she gets up she feels the dizziness and she has been "running into martinez". She denies a fall, head injury, or specific injury to the left arm/shoulder. Past medical history includes epilepsy, fibromyalgia, migraines. TRAVEL OUTSIDE OF THE [place] IN LAST 30 DAYS: No - Related Data Allergies/Adverse Reactions: tramadol Allergy (Verified 11/09/18 17:51) Past Medical History - General Information source: Patient - Social History Smoking Status: Never Smoker Frequency of alcohol use: None Drug Abuse: None Lives with: Family Family History: Arthritis, CAD, CVA, DM, Hyperlipidemia, Hypertension, Malignancy Pulmonary Medical History: Reports: Hx Pneumonia Neurological Medical History: Reports: Hx Migraine, Hx Seizures Renal/ Medical History: Reports: Hx Ovarian Cysts. Denies: Hx Peritoneal Dialysis Musculoskeletal Medical History: Reports Hx Fibromyalgia Psychiatric Medical History: Reports: Hx Depression Past Surgical History: Reports: Hx Section - 3, Hx Hysterectomy - Immunizations Immunizations up to date: Yes Hx Diphtheria, Pertussis, Tetanus Vaccination: Yes Review of Systems - Review of Systems Constitutional: See HPI EENT: See HPI Cardiovascular: No symptoms reported Respiratory: No symptoms reported Gastrointestinal: No symptoms reported Genitourinary: No symptoms reported Female Genitourinary: No symptoms reported Musculoskeletal: See HPI Skin: No symptoms reported Hematologic/Lymphatic: No symptoms reported Neurological/Psychological: See HPI Physical Exam - Vital signs Vitals: Temp Pulse Resp BP Pulse Ox 97.6 F 116 H 16 108/66 100 06/26/19 23:47 06/26/19 23:47 06/26/19 23:47 06/26/19 23:47 06/26/19 23:47 - Notes Notes: GENERAL: Alert, interacts well. No acute distress. HEAD: Normocephalic, atraumatic. EYES: Pupils equal, round, and reactive to light. Extraocular movements intact. Nystagmus ENT: Oral mucosa dry, tongue midline. Oropharynx unremarkable. Airway patent. Nares patent, no nasal septal hematoma, TM's intact. NECK: Full range of motion. Supple. Trachea midline. LUNGS: Clear to auscultation bilaterally, no wheezes, rales, or rhonchi. No respiratory distress. HEART: Mild tachycardia, normal rhythm, no murmur ABDOMEN: Soft, non-tender. Non-distended. Bowel sounds present in all 4 quadrants. GENITOURINARY: Deferred EXTREMITIES: Moves all 4 extremities spontaneously. Mild tenderness of the left clavicle, normal strength and range of motion of the left arm, no signs of trauma. No edema, normal radial and dorsalis pedis pulses bilaterally. No cyanosis. BACK: no cervical, thoracic, lumbar midline tenderness. No saddle anesthesia, normal distal neurovascular exam. Moves all extremities in full range of motion. NEUROLOGICAL: Alert and oriented x3. Normal speech. Cranial nerves II through XII grossly intact. PSYCH: Normal affect, normal mood. SKIN: Warm, dry, normal turgor. No rashes or lesions noted. Course - Re-evaluation Re-evalutation: Patient has dry mucous membranes and she is mildly tachycardic. She is calm and well-appearing otherwise. She does not have nystagmus, she has no worsening symptoms with position changes performed by me, she does not appear to have severe vertigo. She had no difficulty tolerating p.o. She does not have a headache. She has no neurological deficits. I have a low suspicion of any intracranial abnormality. Patient given IV fluids, meclizine, Zofran. Patient does states she feels improved on reevaluation. Her blood pressure slightly low, we checked orthostatics and these are normal. She is able to get up and ambulate without difficulty. CBC, chemistry, and elevated specific gravity before IV fluids were given. EKG and chest x-ray unremarkable, troponin is not elevated. This was checked because of her reported nausea and dizziness but I do suspect this is related to her reported vertigo. Patient has some mild tenderness of the clavicle but this appears normal on the x-ray, there was no injury, she is requesting a sling after discussion, she was provided with this but this does appear to be exclusively musculoskeletal. This is possible injury from bumping into a wall earlier as she described. I discussed with patient in detail, patient is requesting symptom management at home, she will be referred to ENT, discussed return precautions in detail. Patient and significant other state appreciation and agreement. - Vital Signs Vital signs: Temp Pulse Resp BP Pulse Ox 97.3 F 91 16 95/64 L 97 06/27/19 03:39 06/27/19 03:39 06/27/19 03:39 06/27/19 03:39 06/27/19 03:39 - Laboratory Result Diagrams: 06/27/19 01:00 06/27/19 01:00 Laboratory results interpreted by me: 06/27/19 06/27/19 01:00 01:00 Hgb 11.5 L Hct 35.6 L Lymph % (Auto) 45.5 H Chloride 108 H Glucose 118 H Discharge - Discharge Clinical Impression: Vertigo, Dehydration Left shoulder pain Qualifiers: Chronicity: acute Qualified Code(s): M25.512 - Pain in left shoulder Condition: Stable Disposition: HOME, SELF-CARE Additional Instructions: Take the meclizine daily as prescribed, take the diazepam only if needed for vertigo symptoms, take the Zofran as needed for nausea. Improve hydration. Follow-up with the ENT referral if symptoms continue. Use the sling for your a rm for comfort if needed, apply ice to the shoulder area, this should resolve with time. This appears to be musculoskeletal injury/strain only. Remember to take your arm out of the sling multiple times a day to avoid frozen shoulder. Return if you worsen including vomiting, headache, swelling/redness of the shoulder, or any other concerning or worsening symptoms per Prescriptions: Meclizine HCl 25 mg PO TID 7 Days #21 tab.chew Diazepam [Valium 5 mg Tablet] 1 - 2 tab PO TID PRN #8 tablet PRN Reason: Ondansetron [Zofran Odt 4 mg Tablet] 1 - 2 tab PO Q4H PRN #15 tab.rapdis PRN Reason: For Nausea/Vomiting Referrals: JOHNNA BLAIR DO [ASSOCIATE] - Follow up as needed
[2019-06-27 01:00] LABS: APPEARANCE,URINE CLEAR; BILIRUBIN,URINE NEGATIVE (NEGATIVE); COLOR,URINE YELLOW; GLUCOSE, URINE NEGATIVE (NEGATIVE); KETONES,URINE NEGATIVE (NEGATIVE); LEUKOCYTE ESTERASE,URINE NEGATIVE (NEGATIVE); NITRITE,URINE NEGATIVE (NEGATIVE); PROTEIN,URINE NEGATIVE (NEGATIVE); UROBILINOGEN,URINE NEGATIVE mg/dL (<2.0)
--- NOTE | 2019-06-27 01:15 | RADIOLOGY REPORT (SQ) ---
EXAM DESCRIPTION: [facility]: XR CHEST 2 VIEWS Views: 2 CLINICAL HISTORY: 43 years Female, left shoulder pain, nausea COMPARISON: None. FINDINGS: The lungs are clear. No pneumothorax or significant pleural effusion. Cardiomediastinal silhouette is within normal limits. Bony structures are unremarkable for age. IMPRESSION: 1. No acute cardiothoracic abnormality.
[2019-06-27 01:25] LABS: ABSOLUTE EOSINOPHILS # (AUTO) 0.1 10^3/uL (0.0-0.6); ABSOLUTE LYMPHOCYTES (AUTO) 2.2 10^3/uL (0.5-4.7); ABSOLUTE MONOCYTES (AUTO) 0.4 10^3/uL (0.1-1.4); ABSOLUTE NEUT (AUTO) 2.2 10^3/uL (1.7-8.2); BASOPHILS % (AUTO) 0.6 % (0-2); EOSINOPHILS % (AUTO) 1.5 % (0-6); HEMATOCRIT 35.6 % (36.0-47.0); HEMOGLOBIN 11.5 g/dL (12.0-15.5); LYMPHOCYTES % (AUTO) 45.5 % (13-45); MEAN CORPUSCULAR HEMOGLOBIN 27.7 pg (27.0-33.4); MEAN CORPUSCULAR HGB CONC 32.3 g/dL (32.0-36.0); MEAN CORPUSCULAR VOLUME 86 fl (80-97); MONOCYTES % (AUTO) 7.6 % (3-13); PLATELET COUNT 282 10^3/uL (150-450); RED BLOOD COUNT 4.15 10^6/uL (3.72-5.28); RED CELL DISTRIBUTION WIDTH 13.9 % (11.5-14.0); SEGMENTED NEUTROPHILS % (AUTO) 44.8 % (42-78); TOTAL CELLS COUNTED % (AUTO) 100 %; WHITE BLOOD COUNT 4.8 10^3/uL (4.0-10.5)
[2019-06-27 01:43] LABS: ALKALINE PHOSPHATASE 65 U/L (38-126); ANION GAP 10 (5-19); ASPARTATE AMINO TRANSFERASE 21 U/L (14-36); BILIRUBIN,DIRECT 0.1 mg/dL (0.0-0.4); BILIRUBIN,TOTAL 0.3 mg/dL (0.2-1.3); BLOOD UREA NITROGEN 20 mg/dL (7-20); CARBON DIOXIDE 24 mmol/L (22-30); CHLORIDE 108 mmol/L (98-107); GLUCOSE 118 mg/dL (75-110); POTASSIUM 4.4 mmol/L (3.6-5.0)
[2019-06-27 03:39] VITALS: BP 95/64
--- NOTE | 2019-06-27 12:58 | EKG REPORT ---
SEVERITY:- OTHERWISE NORMAL ECG - SINUS TACHYCARDIA : Confirmed by: Khadijah Hou MD 27-Jun-2019 12:58:01
== END 2019-06-27 03:39 | disposition home or self-care (01) ==
LOC: ER 23:38
DX: R42 Dizziness and giddiness (principal); M25.512 Pain in left shoulder; M79.602 Pain in left arm; E86.0 Dehydration; R00.0 Tachycardia, unspecified; R11.2 Nausea with vomiting, unspecified; Z88.5 Allergy status to narcotic agent; Z90.710 Acquired absence of both cervix and uterus
CPT/HCPCS: 93005; 36415; 84703; 85025; 80053; 81001; 84484; 71046; 93010; J2405; J7030; 96361; 96374; 99284

== ENCOUNTER 2019-08-16 09:19 | Emergency (ER) | payer MEDICAID ==
[2019-08-16] MEDS ORDERED: ONDANSETRON 4 MG TAB.RAPDIS PO ONE ×2 (10:26→14:30)
--- NOTE | 2019-08-16 10:27 | ER Document Report ---
ED Medical Screen (RME) - General Chief Complaint: Nausea Stated Complaint: NAUSEA Time Seen by Provider: 08/16/19 10:23 Primary Care Provider: KEVIN MCQUEEN NP [Primary Care Provider] - Follow up as needed Mode of Arrival: Ambulatory Information source: Patient Notes: 43-year-old female prediabetic presents emergency department with reports that after she eats she feels nauseated and sweats. Denies fever vomiting diarrhea. Denies abdominal pain. Denies pain with void. Reports history of hysterectomy and possibly cholecystectomy. No pain with palpation to the abdomen. Patient is nauseated now. Tiffany ordered I have greeted and performed a rapid initial assessment of this patient. A comprehensive ED assessment and evaluation of the patient, analysis of test results and completion of the medical decision making process will be conducted by additional ED providers. Dictation of this chart was performed using voice recognition software; therefore, there may be some unintended grammatical errors. TRAVEL OUTSIDE OF THE [place] IN LAST 30 DAYS: No - Related Data Allergies/Adverse Reactions: tramadol Allergy (Verified 08/16/19 10:23) Past Medical History - Social History Chew tobacco use (# tins/day): No Frequency of alcohol use: None Drug Abuse: None Pulmonary Medical History: Reports: Hx Pneumonia Neurological Medical History: Reports: Hx Migraine, Hx Seizures Renal/ Medical History: Reports: Hx Ovarian Cysts. Denies: Hx Peritoneal Dialysis Musculoskeltal Medical History: Reports Hx Fibromyalgia Psychiatric Medical History: Reports: Hx Depression Past Surgical History: Reports: Hx Section - 3, Hx Hysterectomy - Immunizations Immunizations up to date: Yes Hx Diphtheria, Pertussis, Tetanus Vaccination: Yes Physical Exam - Vital signs Vitals: Temp Pulse Resp BP Pulse Ox 98.0 F 81 16 114/69 94 08/16/19 09:42 08/16/19 09:42 08/16/19 09:42 08/16/19 09:42 08/16/19 09:42 Course - Vital Signs Vital signs: Temp Pulse Resp BP Pulse Ox 98.0 F 81 16 114/69 94 08/16/19 10:23 08/16/19 09:42 08/16/19 10:23 08/16/19 09:42 08/16/19 10:23 Doctor's Discharge - Discharge Referrals: KEVIN MCQUEEN NP [Primary Care Provider] - Follow up as needed
[2019-08-16 11:12] LABS: ABSOLUTE EOSINOPHILS # (AUTO) 0.1 10^3/uL (0.0-0.6); ABSOLUTE LYMPHOCYTES (AUTO) 1.5 10^3/uL (0.5-4.7); ABSOLUTE MONOCYTES (AUTO) 0.3 10^3/uL (0.1-1.4); BASOPHILS % (AUTO) 1.1 % (0-2); HEMATOCRIT 37.7 % (36.0-47.0); HEMOGLOBIN 12.3 g/dL (12.0-15.5); LYMPHOCYTES % (AUTO) 37.4 % (13-45); MEAN CORPUSCULAR HEMOGLOBIN 27.9 pg (27.0-33.4); MEAN CORPUSCULAR HGB CONC 32.7 g/dL (32.0-36.0); MEAN CORPUSCULAR VOLUME 85 fl (80-97); MONOCYTES % (AUTO) 8.8 % (3-13); PLATELET COUNT 289 10^3/uL (150-450); RED BLOOD COUNT 4.42 10^6/uL (3.72-5.28); RED CELL DISTRIBUTION WIDTH 13.9 % (11.5-14.0); SEGMENTED NEUTROPHILS % (AUTO) 50.7 % (42-78); TOTAL CELLS COUNTED % (AUTO) 100 %
[2019-08-16 11:16] LABS: APPEARANCE,URINE SLIGHTLY-CLOUDY; BILIRUBIN,URINE NEGATIVE (NEGATIVE); COLOR,URINE YELLOW; GLUCOSE, URINE NEGATIVE (NEGATIVE); KETONES,URINE NEGATIVE (NEGATIVE); LEUKOCYTE ESTERASE,URINE MODERATE (NEGATIVE); NITRITE,URINE NEGATIVE (NEGATIVE); PROTEIN,URINE 30 mg/dL (NEGATIVE); URINE SPECIFIC GRAVITY 1.024; UROBILINOGEN,URINE NEGATIVE mg/dL (<2.0)
[2019-08-16 11:29] LABS: ALBUMIN 4.4 g/dL (3.5-5.0); ALKALINE PHOSPHATASE 67 U/L (38-126); ANION GAP 10 (5-19); ASPARTATE AMINO TRANSFERASE 33 U/L (14-36); BILIRUBIN,DIRECT 0.1 mg/dL (0.0-0.4); BILIRUBIN,TOTAL 0.4 mg/dL (0.2-1.3); BLOOD UREA NITROGEN 21 mg/dL (7-20); CALCIUM 10.1 mg/dL (8.4-10.2); CARBON DIOXIDE 29 mmol/L (22-30); CHLORIDE 102 mmol/L (98-107); GLUCOSE 86 mg/dL (75-110); POTASSIUM 4.2 mmol/L (3.6-5.0); TOTAL PROTEIN 7.6 g/dL (6.3-8.2)
[2019-08-16] MEDS ORDERED: DEXAMETHASONE SOD PHOS INJ 10 MG/1 ML VIAL IV ONE (15:24)
[2019-08-16] MEDS ORDERED: NORMAL SALINE 1000 ML 1,000 ML IV ONE (15:24)
[2019-08-16] MEDS ORDERED: PROCHLORPERAZINE EDISYLATE INJ 10 MG/2 ML VIAL IV ONE (15:24)
[2019-08-16] MEDS ORDERED: DIPHENHYDRAMINE HCL 50 MG/ML VIAL IV ONE (15:24)
--- NOTE | 2019-08-16 15:25 | ER Document Report ---
ED General - General Chief Complaint: Nausea Stated Complaint: NAUSEA Time Seen by Provider: 08/16/19 10:23 Primary Care Provider: KEVIN MCQUEEN NP [Primary Care Provider] - Follow up as needed Mode of Arrival: Ambulatory Information source: Patient Notes: Patient presents complaining of 4-day history of nausea with sweats after eating food. Patient states she can tolerate oral fluids without any problems. Patient denies any vomiting. Patient denies any diarrhea fever or abdominal pain. Patient denies any cough or cold symptoms TRAVEL OUTSIDE OF THE [place] IN LAST 30 DAYS: No - HPI Onset: Other - 4 days Onset/Duration: Waxing and waning Quality of pain: No pain Associated symptoms: Headache, Nausea, Sweating. denies: Chest pain, Nonproductive cough, Productive cough, Fever, Vomiting Exacerbated by: Food Relieved by: Denies Similar symptoms previously: No Recently seen / treated by doctor: No - Related Data Allergies/Adverse Reactions: tramadol Allergy (Verified 08/16/19 10:23) Past Medical History - General Information source: Patient - Social History Smoking Status: Never Smoker Chew tobacco use (# tins/day): No Frequency of alcohol use: None Drug Abuse: None Occupation: none Family History: Arthritis, CAD, CVA, DM, Hyperlipidemia, Hypertension, Malignancy Patient has suicidal ideation: No Patient has homicidal ideation: No Pulmonary Medical History: Reports: Hx Pneumonia Neurological Medical History: Reports: Hx Migraine, Hx Seizures Renal/ Medical History: Reports: Hx Ovarian Cysts. Denies: Hx Peritoneal Dialysis Musculoskeletal Medical History: Reports Hx Fibromyalgia Psychiatric Medical History: Reports: Hx Depression Past Surgical History: Reports: Hx Section - 3, Hx Hysterectomy - Immunizations Immunizations up to date: Yes Hx Diphtheria, Pertussis, Tetanus Vaccination: Yes Review of Systems - Review of Systems Constitutional: Other - sweats with eating food. denies: Fever EENT: No symptoms reported Cardiovascular: No symptoms reported. denies: Chest pain Respiratory: No symptoms reported. denies: Cough Gastrointestinal: Nausea. denies: Abdominal pain, Diarrhea, Vomiting Genitourinary: No symptoms reported Female Genitourinary: No symptoms reported Musculoskeletal: No symptoms reported. denies: Back pain, Neck pain Skin: No symptoms reported. denies: Rash Hematologic/Lymphatic: No symptoms reported Neurological/Psychological: Headaches. denies: Weakness Physical Exam - Vital signs Vitals: Temp Pulse Resp BP Pulse Ox 98.0 F 81 16 114/69 94 08/16/19 09:42 08/16/19 09:42 08/16/19 09:42 08/16/19 09:42 08/16/19 09:42 - General General appearance: Appears well, Alert In distress: None - HEENT Head: Normocephalic, Atraumatic Eyes: Normal Conjunctiva: Normal Extraocular movements intact: Yes Eyelashes: Normal Pupils: PERRL Ears: Normal External canal: Normal Tympanic membrane: Normal Nasal: Normal Mouth/Lips: Normal Mucous membranes: Normal Pharynx: Normal. No: Erythema, Tonsillar hypertrophy Neck: Normal, Supple. No: Brudzinski, Kernig's, Lymphadenopathy, Meningismus - Respiratory Respiratory status: No respiratory distress Chest status: Nontender Breath sounds: Normal. No: Rales, Rhonchi, Stridor, Wheezing Chest palpation: Normal - Cardiovascular Rhythm: Regular Heart sounds: S1 appreciated, S2 appreciated Murmur: No - Abdominal Inspection: Normal, Obese Distension: No distension Bowel sounds: Normal Tenderness: Nontender Organomegaly: No organomegaly - Back Back: Normal, Nontender. No: CVA tenderness - Extremities General upper extremity: Normal inspection, Nontender, Normal strength General lower extremity: Normal inspection, Nontender, Normal strength - Neurological Neuro grossly intact: Yes Cognition: Normal Víctor Coma Scale Eye Opening: Spontaneous Víctor Coma Scale Verbal: Oriented Sutter Coma Scale Motor: Obeys Commands Víctor Coma Scale Total: 15 - Psychological Associated symptoms: Normal affect, Normal mood - Skin Skin Temperature: Warm Skin Moisture: Dry Skin Color: Normal Course - Re-evaluation Re-evalutation: 08/16/19 17:05 Patient reports headache pain is improved as is nausea. Patient is feeling better at this time. Discussed results of patient's diagnostic test with her. Patient denies any urinary symptoms at this time. The patient presents with headache without signs of STATISTICAL TYPIST bleed, stroke, infection, or other serious etiology. The patient is neurologically intact. Given the extremely low risk of these diagnoses further testing and evaluation for these possibilities does not appear to be indicated at this time. The patient has been instructed to return if the symptoms worsen or change in any way. - Vital Signs Vital signs: Temp Pulse Resp BP Pulse Ox 97.6 F 92 16 98/68 L 96 08/16/19 17:09 08/16/19 17:09 08/16/19 17:09 08/16/19 17:12 08/16/19 17:09 - Laboratory Result Diagrams: 08/16/19 10:45 08/16/19 10:45 Laboratory results interpreted by me: 08/16/19 08/16/19 10:45 10:45 BUN 21 H Urine Protein 30 H Ur Leukocyte Esterase MODERATE H 08/16/19 17:05 Labs- Entire Visit 08/16/19 08/16/19 08/16/19 10:45 10:45 10:45 WBC 4.0 RBC 4.42 Hgb 12.3 Hct 37.7 MCV 85 MCH 27.9 MCHC 32.7 RDW 13.9 Plt Count 289 Lymph % (Auto) 37.4 Izard % (Auto) 8.8 Eos % (Auto) 2.0 Baso % (Auto) 1.1 Absolute Neuts (auto) 2.0 Absolute Lymphs (auto) 1.5 Absolute Monos (auto) 0.3 Absolute Eos (auto) 0.1 Absolute Basos (auto) 0.0 Seg Neutrophils % 50.7 Sodium 140.9 Potassium 4.2 Chloride 102 Carbon Dioxide 29 Anion Gap 10 BUN 21 H Creatinine 0.81 Est GFR ( Amer) > 60 Est GFR (MDRD) Non-Af > 60 Glucose 86 Calcium 10.1 Total Bilirubin 0.4 Direct Bilirubin 0.1 Neonat Total Bilirubin Not Reportable Neonat Direct Bilirubin Not Reportable Neonat Indirect Bili Not Reportable AST 33 ALT 29 Alkaline Phosphatase 67 Total Protein 7.6 Albumin 4.4 Lipase 77.3 Urine Color YELLOW Urine Appearance SLIGHTLY-CLOUDY Urine pH 7.0 Ur Specific Overton 1.024 Urine Protein 30 H Urine Glucose (UA) NEGATIVE Urine Ketones NEGATIVE Urine Blood NEGATIVE Urine Nitrite NEGATIVE Urine Bilirubin NEGATIVE Urine Urobilinogen NEGATIVE Ur Leukocyte Esterase MODERATE H Urine WBC (Auto) 3 Urine RBC (Auto) 1 Squamous Epi Cells Auto 4 Urine Mucus (Auto) FEW Urine Ascorbic Acid NEGATIVE Discharge - Discharge Clinical Impression: Headache Qualifiers: Headache type: unspecified Headache chronicity pattern: unspecified pattern Intractability: not intractable Qualified Code(s): R51 - Headache Nausea and vomiting Qualifiers: Vomiting type: unspecified Vomiting Intractability: non-intractable Qualified Code(s): R11.2 - Nausea with vomiting, unspecified Condition: Stable Disposition: HOME, SELF-CARE Instructions: Antinausea Medication ([facility]), Intravenous Compazine for Headaches ([facility]), Headache ([facility]), Intravenous (IV) Fluids ([facility]) Additional Instructions: Return immediately for any new or worsening symptoms Followup with your primary care provider, call tomorrow to make a followup appointment Increase oral fluids and stay well-hydrated Prescriptions: Naproxen [Naprosyn 250 Nmg Tablet] 1 tab PO BID #14 tablet Ondansetron HCl [Zofran 4 mg Tablet] 1 - 2 tab PO Q6 PRN #15 tablet PRN Reason: Referrals: KEVIN MCQUEEN NP [Primary Care Provider] - Follow up as needed
[2019-08-16 17:13] VITALS: BP 98/68
== END 2019-08-16 17:15 | disposition home or self-care (01) ==
LOC: ER 09:19
DX: R51 Headache (principal); R11.2 Nausea with vomiting, unspecified; R61 Generalized hyperhidrosis
CPT/HCPCS: 99283; 96361; 96374; 96375; 36415; 82962; 83690; 85025; 80053; 81001; J1200; S0119; J0780; J7030; J1100

== ENCOUNTER 2019-09-30 19:02 | Emergency (ER) | payer MEDICAID ==
[2019-09-30 19:27] VITALS: BP 110/82
[2019-09-30] MEDS ORDERED: ACETAMINOPHEN 325 MG TABLET PO ONE (20:01)
[2019-09-30] MEDS ORDERED: IBUPROFEN 800 MG TABLET PO ONE (20:02)
[2019-09-30] MEDS ORDERED: ONDANSETRON 4 MG TAB.RAPDIS PO ONE (20:02)
--- NOTE | 2019-09-30 20:03 | ER Document Report ---
ED Medical Screen (RME) - General Chief Complaint: Flu Symptoms Stated Complaint: BODY ACHES,FEVER Time Seen by Provider: 09/30/19 19:55 Primary Care Provider: KEVIN MCQUEEN NP [Primary Care Provider] - Follow up as needed Mode of Arrival: Ambulatory Information source: Patient Notes: 43-year-old female patient presents emergency department chief complaint of coug h, congestion and fever. Patient reports symptoms ongoing for the last 3 days. She reports her child and grandchild recently had the flu. Lung sounds clear and equal bilaterally. No acute distress noted. Patiently mildly tachycardic. Has not taken any medications today. I have greeted and performed a rapid initial assessment of this patient. A comprehensive ED assessment and evaluation of the patient, analysis of test results and completion of the medical decision making process will be conducted by additional ED providers. I have specifically instructed the patient or family members with the patient to immediately return to any nursing staff should anything change in the patient's condition or with their chief complaint. TRAVEL OUTSIDE OF THE [place] IN LAST 30 DAYS: No - Related Data Allergies/Adverse Reactions: tramadol Allergy (Verified 08/16/19 10:23) Home Medications: Gabapentin. oxycodone. celexa Past Medical History Pulmonary Medical History: Reports: Hx Pneumonia Neurological Medical History: Reports: Hx Migraine, Hx Seizures Renal/ Medical History: Reports: Hx Ovarian Cysts. Denies: Hx Peritoneal Dialysis Musculoskeltal Medical History: Reports Hx Fibromyalgia Psychiatric Medical History: Reports: Hx Depression Past Surgical History: Reports: Hx Section - 3, Hx Hysterectomy - Immunizations Immunizations up to date: Yes Hx Diphtheria, Pertussis, Tetanus Vaccination: Yes Physical Exam - Vital signs Vitals: Temp Pulse Resp BP Pulse Ox 99.6 F 113 H 18 110/82 100 09/30/19 19:27 09/30/19 19:27 09/30/19 19:27 09/30/19 19:27 09/30/19 19:27 Course - Vital Signs Vital signs: Temp Pulse Resp BP Pulse Ox 99.6 F 113 H 18 110/82 100 09/30/19 19:27 09/30/19 19:27 09/30/19 19:27 09/30/19 19:27 09/30/19 19:27 Doctor's Discharge - Discharge Referrals: KEVIN MCQUEEN NP [Primary Care Provider] - Follow up as needed
[2019-09-30 21:51] LABS: A TYPE INFLUENZA AG NEGATIVE (NEGATIVE); B INFLUENZA AG NEGATIVE (NEGATIVE)
== END 2019-09-30 23:30 | disposition left against medical advice (07) ==
LOC: ER 19:02
DX: R50.9 Fever, unspecified (principal); R05 Cough; R00.0 Tachycardia, unspecified; M79.7 Fibromyalgia; Z79.899 Other long term (current) drug therapy; Z79.891 Long term (current) use of opiate analgesic; Z87.01 Personal history of pneumonia (recurrent); Z88.6 Allergy status to analgesic agent; Z53.20 Procedure and treatment not carried out because of patient's decision for unspecified reasons
CPT/HCPCS: 87804; J3490 ×2; S0119; 99281

== ENCOUNTER 2019-12-02 15:41 | Emergency (ER) | payer SELFPAY ==
--- NOTE | 2019-12-02 17:08 | ER Document Report ---
ED Medical Screen (RME) - General Chief Complaint: Hip Pain Stated Complaint: LEFT HIP PAIN Time Seen by Provider: 12/02/19 16:34 Mode of Arrival: Ambulatory Information source: Patient Notes: 44-year-old female patient presenting to the emergency department chief complaint of left lateral hip pain. Patient reports pain ongoing for approximately 4 days. She denies any specific injury. She reports pain is actually worse with walking or with lying still. She denies any fevers or body aches. Left lateral hip tender with palpation, unable to fully visualize due to seated position in triage. I have greeted and performed a rapid initial assessment of this patient. A comprehensive ED assessment and evaluation of the patient, analysis of test results and completion of the medical decision making process will be conducted by additional ED providers. I have specifically instructed the patient or family members with the patient to immediately return to any nursing staff should anything change in the patient's condition or with their chief complaint. TRAVEL OUTSIDE OF THE [place] IN LAST 30 DAYS: No - Related Data Allergies/Adverse Reactions: tramadol Allergy (Verified 12/02/19 16:33) Home Medications: KEPPRA Past Medical History - Social History Chew tobacco use (# tins/day): No Frequency of alcohol use: None Drug Abuse: None Pulmonary Medical History: Reports: Hx Pneumonia Neurological Medical History: Reports: Hx Migraine, Hx Seizures Renal/ Medical History: Reports: Hx Ovarian Cysts. Denies: Hx Peritoneal Dialysis Musculoskeltal Medical History: Reports Hx Fibromyalgia Psychiatric Medical History: Reports: Hx Depression Past Surgical History: Reports: Hx Section - 3, Hx Hysterectomy - Immunizations Immunizations up to date: Yes Hx Diphtheria, Pertussis, Tetanus Vaccination: Yes Physical Exam - Vital signs Vitals: Temp Pulse Resp BP Pulse Ox 98.5 F 90 16 121/88 H 100 12/02/19 15:44 12/02/19 15:44 12/02/19 15:44 12/02/19 15:44 12/02/19 15:44 Course - Vital Signs Vital signs: Temp Pulse Resp BP Pulse Ox 98.5 F 90 16 121/88 H 100 12/02/19 15:44 12/02/19 15:44 12/02/19 15:44 12/02/19 15:44 12/02/19 15:44
--- NOTE | 2019-12-02 17:08 | RADIOLOGY REPORT (SQ) ---
EXAM DESCRIPTION: HIP LEFT AP/LATERAL IMAGES COMPLETED DATE/TIME: 12/02/2019 4:51 pm REASON FOR STUDY: L HIP PAIN, NO INJURY COMPARISON: None. NUMBER OF VIEWS: Two views. TECHNIQUE: AP pelvis and additional frog-leg view of the left hip. LIMITATIONS: None. FINDINGS: MINERALIZATION: Normal. LEFT HIP: No fracture or dislocation. No worrisome bone lesions. RIGHT HIP: No fracture or dislocation. No worrisome bone lesions. PUBIS AND ISCHIUM: No fracture. PELVIS: No fracture. SACRUM: No fracture or dislocation. No worrisome bone lesions. LOWER LUMBAR SPINE: No fracture or dislocation. No worrisome bone lesions. No significant disc disea se. SOFT TISSUES: No findings. Scattered pelvic phleboliths. OTHER: No other significant finding. IMPRESSION: NEGATIVE STUDY OF THE LEFT HIP AND PELVIS. NO RADIOGRAPHIC EVIDENCE OF ACUTE INJURY. TECHNICAL DOCUMENTATION: JOB ID: [id number] 2010 [employer]- All Rights Reserved Reading location - IP/workstation name: [email or web address]
--- NOTE | 2019-12-02 19:13 | ER Document Report ---
ED General - General Chief Complaint: Hip Pain Stated Complaint: LEFT HIP PAIN Time Seen by Provider: 12/02/19 16:34 Mode of Arrival: Ambulatory Notes: 44-year-old female presents emergency department complaining of left hip pain that is been getting progressively worse. Patient states that it is intermittent but has been there for a while however it is been getting worse since she started a new job. States that it worsens when she does any 1 activity for too long including sitting, walking or standing. States it is becoming intolerable aching. States it is associated with a tingling and numb sensation that radiates down the outside of her left leg and to the anterior aspect of her left leg and goes all the way down to her toes. Denies any true loss of sensation. Denies any bowel or bladder dysfunction, denies any saddle anesthesia, denies any weakness or difficulty walking despite pain. Denies any injury. States that she had been seeing pain management for herniated disks in her lumbar spine and in her neck, states she spoke with them about this as well and they diagnosed her with a condition whose name she does not recall. States that she was told the pain should get better. Patient is in between pain management docs at this time. Did have 4 Percocet left over from her prior pain management physician, tried taking 1 last night with 2 Lyrica and it did not help. Tried taking one this morning with gabapentin and it did not help either. TRAVEL OUTSIDE OF THE [place] IN LAST 30 DAYS: No - Related Data Allergies/Adverse Reactions: tramadol Allergy (Verified 12/02/19 16:33) Home Medications: KEPPRA Past Medical History - General Information source: Patient - Social History Smoking Status: Never Smoker Chew tobacco use (# tins/day): No Frequency of alcohol use: None Drug Abuse: None Family History: Arthritis, CAD, CVA, DM, Hyperlipidemia, Hypertension, Malignancy Patient has suicidal ideation: No Patient has homicidal ideation: No Pulmonary Medical History: Reports: Hx Pneumonia Neurological Medical History: Reports: Hx Migraine, Hx Seizures Renal/ Medical History: Reports: Hx Ovarian Cysts. Denies: Hx Peritoneal Dialysis Musculoskeletal Medical History: Reports Hx Fibromyalgia Psychiatric Medical History: Reports: Hx Depression Past Surgical History: Reports: Hx Section - 3, Hx Hysterectomy - Immunizations Immunizations up to date: Yes Hx Diphtheria, Pertussis, Tetanus Vaccination: Yes Review of Systems - Review of Systems Musculoskeletal: See HPI Neurological/Psychological: See HPI -: Yes All other systems reviewed and negative Physical Exam - Vital signs Vitals: Temp Pulse Resp BP Pulse Ox 98.5 F 90 16 121/88 H 100 12/02/19 15:44 12/02/19 15:44 12/02/19 15:44 12/02/19 15:44 12/02/19 15:44 Interpretation: Normal - Notes Notes: GENERAL: Alert, interacts well. No acute distress. HEAD: Normocephalic, atraumatic EYES: Pupils equal, round and reactive to light, extraocular movements intact. ENT: Oral mucosa moist, tongue midline. NECK: Full range of motion, supple, trachea midline. LUNGS: no respiratory distress. ABDOMEN: nondistended. EXTREMITIES: Moves all 4 extremities spontaneously, no edema, radial and dorsalis pedis pulses 2/4 bilaterally. No cyanosis. Negative straight leg raising test bilaterally. Complains of pain when I palpate down the lateral aspect of her left leg from the greater trochanter all the way down to mid calf. No swelling is noted, no rashes are noted. NEUROLOGICAL: Alert and oriented x3, normal speech, biceps and patellar DTRs 2+ bilaterally. 5 out of 5 great toe raising strength bilaterally, sensation intact, no saddle anesthesia, negative straight leg raising test bilaterally. Sensation is intact. PSYCH: Normal mood, normal affect. SKIN: Warm, Dry, normal turgor, no rashes or lesions noted. Course - Re-evaluation Re-evalutation: 12/02/19 19:10 Hip X-Ray 12/02/19 16:39 IMPRESSION: NEGATIVE STUDY OF THE LEFT HIP AND PELVIS. NO RADIOGRAPHIC EVIDENCE OF ACUTE INJURY. No evidence of cauda equina, no red flag symptoms. Appears consistent with a lumbar radiculopathy. Will treat with Lyrica. No narcotics indicated for this chronic pain problem. Recommended she set up an appointment with a new pain management services soon as possible. Discharged home. - Vital Signs Vital signs: Temp Pulse Resp BP Pulse Ox 98.5 F 90 16 121/88 H 100 12/02/19 15:44 12/02/19 15:44 12/02/19 15:44 12/02/19 15:44 12/02/19 15:44 Discharge - Discharge Clinical Impression: Left hip pain, Left leg pain, Lumbar radiculopathy, chronic Condition: Stable Disposition: HOME, SELF-CARE Additional Instructions: I suspect the pain in your leg is actually coming from pinched nerve in your low back. There is no sign of an acute problem that would need surgery today. Please return if you lose sensation in your leg, you are unable to move your leg, you are unable to control your bowels or your bladder or you lose sensation around your vagina and rectum such as not being able to feel the toilet paper when you wipe. Please take the Lyrica as directed. Please follow-up with your new pain management services soon as possible. Prescriptions: Pregabalin [Lyrica 50 Mg Capsule] 50 mg PO TID #30 capsule
[2019-12-02 19:30] VITALS: BP 106/70
== END 2019-12-02 19:50 | disposition home or self-care (01) ==
LOC: ER 15:41
DX: M54.16 Radiculopathy, lumbar region (principal); M25.552 Pain in left hip; G89.29 Other chronic pain; R56.9 Unspecified convulsions; Z79.899 Other long term (current) drug therapy; Z88.6 Allergy status to analgesic agent
CPT/HCPCS: 99283

== ENCOUNTER 2020-01-14 15:23 | Emergency (ER) | payer SELFPAY ==
[2020-01-14] MEDS ORDERED: RINGERS SOLUTION,LACTATED 1,000 ML IV ONE (16:03)
[2020-01-14] MEDS ORDERED: KETOROLAC TROMETHAMINE INJ/PF 30 MG/1 ML SDV IV ONE (16:04)
[2020-01-14] MEDS ORDERED: ONDANSETRON HCL INJ/PF 4 MG/2 ML SDV IV ONE (16:04)
[2020-01-14] MEDS ORDERED: DIPHENHYDRAMINE HCL 50 MG/ML VIAL IV ONE (16:04)
--- NOTE | 2020-01-14 16:05 | ER Document Report ---
ED Medical Screen (RME) - General Chief Complaint: Arm Pain Stated Complaint: ARM PAIN Mode of Arrival: Ambulatory Information source: Patient Notes: HPI; 44-year-old female complains of headache, neck pain, left arm pain for the past week. Followed by pain management for herniated disc in neck. Was at urgent care last week was given Toradol, Benadryl, nausea medication without relief. Has been taking her oxycodone, gabapentin and Flexeril without relief. She denies any trauma or injury to her arm. Patient is right-handed. Denies worst headache of her life, no sudden thunderclap no photophobia, no history of migraines. PE: Alert and oriented x3, mild distress. Lungs clear to auscultation without rales rhonchi wheezes, heart regular rate rhythm without murmurs rubs or gallops, tenderness on palpation to the lower cervical spine without deformity noted. Master Baker strength equal and adequate bilaterally. Able to shrug shoulders without difficulty. I have greeted and performed a rapid initial assessment of this patient. A comprehensive ED assessment and evaluation of the patient, analysis of test results and completion of medical decision making process will be conducted by an additional ED providers. TRAVEL OUTSIDE OF THE [place] IN LAST 30 DAYS: No - Related Data Allergies/Adverse Reactions: tramadol Allergy (Verified 01/14/20 15:55) Past Medical History Pulmonary Medical History: Reports: Hx Pneumonia Neurological Medical History: Reports: Hx Migraine, Hx Seizures Renal/ Medical History: Reports: Hx Ovarian Cysts. Denies: Hx Peritoneal Dialysis Musculoskeltal Medical History: Reports Hx Fibromyalgia Psychiatric Medical History: Reports: Hx Depression Past Surgical History: Reports: Hx Section - 3, Hx Hysterectomy - Immunizations Immunizations up to date: Yes Hx Diphtheria, Pertussis, Tetanus Vaccination: Yes Physical Exam - Vital signs Vitals: Temp Pulse Resp BP Pulse Ox 97.9 F 113 H 14 118/74 96 01/14/20 15:01/14/20 15:01/14/20 15:01/14/20 15:01/14/20 15:26 Course - Vital Signs Vital signs: Temp Pulse Resp BP Pulse Ox 97.9 F 113 H 14 118/74 96 01/14/20 15:01/14/20 15:01/14/20 15:01/14/20 15:26 01/14/20 15:26
--- NOTE | 2020-01-14 16:32 | RADIOLOGY REPORT (SQ) ---
EXAM DESCRIPTION: CT HEAD WITHOUT IMAGES COMPLETED DATE/TIME: 01/14/2020 4:22 pm REASON FOR STUDY: headache COMPARISON: None. TECHNIQUE: Axial images acquired through the brain without intravenous contrast. Images reviewed wi th bone, brain and subdural windows. Additional sagittal and coronal reconstructions were generated. Images stored on PACS. All CT scanners at this facility use dose modulation, iterative reconstruction, and/or weight based d osing when appropriate to reduce radiation dose to as low as reasonably achievable (ALARA). [facility]: Dose Right [facility]: CareDose [facility]: Dose Right [facility]: Teradose 4D [facility]: [employer] RADIATION DOSE: mGy. LIMITATIONS: None. FINDINGS: VENTRICLES: Normal size and contour. CEREBRUM: No masses. No hemorrhage. No midline shift. No evidence for acute infarction. Normal gra y/white matter differentiation. No areas of low density in the white matter. CEREBELLUM: No masses. No hemorrhage. No alteration of density. No evidence for acute infarction. EXTRAAXIAL SPACES: No fluid collections. No masses. ORBITS AND GLOBE: No intra- or extraconal masses. Normal contour of globe without masses. CALVARIUM: No fracture. PARANASAL SINUSES: No fluid or mucosal thickening. SOFT TISSUES: No mass or hematoma. OTHER: No other significant finding. IMPRESSION: NORMAL BRAIN CT WITHOUT CONTRAST. EVIDENCE OF ACUTE STROKE: NO. COMMENT: Quality ID # [id number]: Final reports with documentation of one or more dose reduction techniques (e.g., Automated exposure control, adjustment of the mA and/or kV according to patient size, use of iterative reconstruction technique) TECHNICAL DOCUMENTATION: JOB ID: [id number] 2010 [employer]- All Rights Reserved Reading location - IP/workstation name: [email or web address]
--- NOTE | 2020-01-14 16:35 | RADIOLOGY REPORT (SQ) ---
EXAM DESCRIPTION: CT CERVICAL SPINE WITHOUT IMAGES COMPLETED DATE/TIME: 01/14/2020 4:22 pm REASON FOR STUDY: neck pain COMPARISON: None. TECHNIQUE: Axial images acquired through the cervical spine without intravenous contrast. Images re viewed with lung, soft tissue and bone windows. Reconstructed coronal and sagittal MPR images review ed. Images stored on PACS. All CT scanners at this facility use dose modulation, iterative reconstruction, and/or weight based d osing when appropriate to reduce radiation dose to as low as reasonably achievable (ALARA). [facility]: Dose Right [facility]: CareDose [facility]: Dose Right [facility]: Teradose 4D [facility]: [employer] RADIATION DOSE: CT Rad equipment meets quality standard of care and radiation dose reduction techniq ues were employed. CTDIvol: 21.2 - 53.2 mGy. DLP: 1322 mGy-cm. mGy. LIMITATIONS: None. FINDINGS: ALIGNMENT: Reversal of lordosis. MINERALIZATION: Normal. VERTEBRAL BODIES: No fractures or dislocation. DISCS: No significant disc disease. FACETS, LATERAL MASSES, POSTERIOR ELEMENTS: No fractures. No dislocation. No acute findings. HARDWARE: None in the spine. VISUALIZED RIBS: No fractures. LUNG APICES AND SOFT TISSUES: No significant or acute findings. OTHER: No other significant finding. IMPRESSION: NO ACUTE OR SIGNIFICANT FINDINGS IN THE CERVICAL SPINE. TECHNICAL DOCUMENTATION: JOB ID: [id number] Quality ID # [id number]: Final reports with documentation of one or more dose reduction techniques (e.g., Au tomated exposure control, adjustment of the mA and/or kV according to patient size, use of iterative reconstruction technique) 2010 [email or web address]- All Rights Reserved Reading location - IP/workstation name: [email or web address]
[2020-01-14 16:49] LABS: ABSOLUTE EOSINOPHILS # (AUTO) 0.1 10^3/uL (0.0-0.6); ABSOLUTE LYMPHOCYTES (AUTO) 1.8 10^3/uL (0.5-4.7); ABSOLUTE MONOCYTES (AUTO) 0.4 10^3/uL (0.1-1.4); ABSOLUTE NEUT (AUTO) 1.7 10^3/uL (1.7-8.2); BASOPHILS % (AUTO) 1.1 % (0-2); EOSINOPHILS % (AUTO) 1.7 % (0-6); HEMATOCRIT 36.8 % (36.0-47.0); HEMOGLOBIN 12.2 g/dL (12.0-15.5); LYMPHOCYTES % (AUTO) 44.7 % (13-45); MEAN CORPUSCULAR HEMOGLOBIN 27.9 pg (27.0-33.4); MEAN CORPUSCULAR HGB CONC 33.1 g/dL (32.0-36.0); MEAN CORPUSCULAR VOLUME 85 fl (80-97); MONOCYTES % (AUTO) 9.7 % (3-13); PLATELET COUNT 226 10^3/uL (150-450); RED BLOOD COUNT 4.36 10^6/uL (3.72-5.28); RED CELL DISTRIBUTION WIDTH 13.8 % (11.5-14.0); SEGMENTED NEUTROPHILS % (AUTO) 42.8 % (42-78); TOTAL CELLS COUNTED % (AUTO) 100 %
[2020-01-14 17:08] LABS: ALBUMIN 4.3 g/dL (3.5-5.0); ALKALINE PHOSPHATASE 64 U/L (38-126); ANION GAP 5 (5-19); ASPARTATE AMINO TRANSFERASE 35 U/L (14-36); BILIRUBIN,TOTAL 0.5 mg/dL (0.2-1.3); BLOOD UREA NITROGEN 15 mg/dL (7-20); C-REACTIVE PROTEIN 6.1 mg/L (<10.0); CALCIUM 9.5 mg/dL (8.4-10.2); CARBON DIOXIDE 29 mmol/L (22-30); CHLORIDE 105 mmol/L (98-107); GLUCOSE 119 mg/dL (75-110); POTASSIUM 4.4 mmol/L (3.6-5.0); TOTAL PROTEIN 7.1 g/dL (6.3-8.2)
[2020-01-14 17:27] LABS: ERYTHROCYTE SEDIMENTATION RATE 16 mm/hr (0-20)
[2020-01-14] MEDS ORDERED: METHYLPREDNISOLONE INJ 125 MG/2 ML SDV IV ONE (17:30)
--- NOTE | 2020-01-14 17:36 | ER Document Report ---
ED General - General Chief Complaint: Numbness of Arm Stated Complaint: ARM PAIN Time Seen by Provider: 01/14/20 16:06 Primary Care Provider: KEVIN MCQUEEN NP [Primary Care Provider] - Follow up as needed Mode of Arrival: Ambulatory TRAVEL OUTSIDE OF THE [place] IN LAST 30 DAYS: No - HPI Notes: Patient is a 44-year-old female presents emergency department for evaluation of headache, neck pain, left arm pain. She states that she has had this pain since last week. Last Saturday she had a seizure. She has a known history of seizure disorder. She states the next day she developed pain all over, but the pain has progressively improved everywhere else and worsened in her neck, left shoulder, left arm. She has occasional numbness and tingling in her left arm, that she states progressed to become steady. She denies any weakness. No other focal n umbness or weakness in any other parts of the body. She denies any fevers or chills. No nausea or vomiting. She is been trying her Flexeril, Naprosyn, Percocet at home without any significant relief. - Related Data Allergies/Adverse Reactions: tramadol Allergy (Verified 01/14/20 15:55) Home Medications: gabapentin, keppra, flexerill, oxycodone, Past Medical History - General Information source: Patient - Social History Smoking Status: Never Smoker Chew tobacco use (# tins/day): No Frequency of alcohol use: None Drug Abuse: None Family History: Arthritis, CAD, CVA, DM, Hyperlipidemia, Hypertension, Malignancy Patient has homicidal ideation: No Pulmonary Medical History: Reports: Hx Pneumonia Neurological Medical History: Reports: Hx Migraine, Hx Seizures Renal/ Medical History: Reports: Hx Ovarian Cysts. Denies: Hx Peritoneal Dialysis Musculoskeletal Medical History: Reports Hx Fibromyalgia Psychiatric Medical History: Reports: Hx Depression Past Surgical History: Reports: Hx Section - 3, Hx Hysterectomy - Immunizations Immunizations up to date: Yes Hx Diphtheria, Pertussis, Tetanus Vaccination: Yes Review of Systems - Review of Systems Musculoskeletal: See HPI -: Yes All other systems reviewed and negative Physical Exam - Vital signs Vitals: Temp Pulse Resp BP Pulse Ox 97.9 F 113 H 14 118/74 96 01/14/20 15:26 01/14/20 15:26 01/14/20 15:26 01/14/20 15:26 01/14/20 15:26 - Notes Notes: This is a pleasant 44-year-old female who appears her stated age, no acute distress. Head is normocephalic and atraumatic, pupils are equal round, reactive to light. Onychosis moist. Heart is regular rate and rhythm, lungs encrustation bilaterally. Abdomen soft, nontender, normoactive bowel sounds. Extremities without cyanosis or clubbing. Skin is warm and dry. Patient is awake, alert, oriented x3. Cranial nerves II through XII are grossly intact without focal neurological deficits. Strength is +5/5 right upper and left lo wer extremities. Intact troozo-[id number]-jevpnc, rapid tonic movements, qkwx-af-[id number]. Examination of the area of chief complaint yields significant tenderness and tension over the left paraspinal cervical musculature, into the left trapezius. She is full range of motion of the shoulder, elbow, wrist, fingers, thumb. Biceps reflexes 2+, brachioradialis reflexes 1+. Sensation is intact. Cto strength is 4+ out of 5, some weakness with flexion and extension of the wrist, but difficult to discern if this is secondary to pain or actual weakness. Course - Re-evaluation Re-evalutation: 01/14/20 17:34 Patient presents to the emergency department for evaluation. Her symptoms and exam seem most consistent with a peripheral cause of her pain. Most likely, she has muscle strain secondary to her seizure activity. She was initially seen through triage. She was treated for a headache. She is already on multiple chronic pain medication as a could be helping with neuropathic pain as well as musculoskeletal pain. She is told she needs to take her Flexeril regularly. The patient has findings most consistent with muscular tension and a peripheral cause for her numbness. CT scan of her cervical spine failed to reveal any sig ns of obvious herniated disc, although obviously this is not the study of choice. I explained this to the patient. We will continue with conservative therapy at this time, encouraged her to follow-up closely with primary care if her symptoms persist. She voiced understanding. She is to return to the ED with worsening or new concerning symptoms of any sort. 01/14/20 17:36 - Vital Signs Vital signs: Temp Pulse Resp BP Pulse Ox 97.9 F 113 H 14 118/74 96 01/14/20 15:55 01/14/20 15:26 01/14/20 15:26 01/14/20 15:26 01/14/20 15:26 - Laboratory Result Diagrams: 01/14/20 16:30 01/14/20 16:30 Laboratory results interpreted by me: 01/14/20 16:30 Glucose 119 H - Diagnostic Test Radiology reviewed: Reports reviewed Radiology results interpreted by me: 01/14/20 17:[address] 01/14/20 16:02 IMPRESSION: NO ACUTE OR SIGNIFICANT FINDINGS IN THE CERVICAL SPINE. Head CT 01/14/20 16:04 IMPRESSION: NORMAL BRAIN CT WITHOUT CONTRAST. EVIDENCE OF ACUTE STROKE: NO. Discharge - Discharge Clinical Impression: Cervicalgia, Left upper extremity numbness, Strain of left trapezius muscle Condition: Stable Disposition: HOME, SELF-CARE Instructions: Muscle Strain ([facility]), Myalagia (Muscle Pain) ([facility]), Numbness or Paresthesia ([facility]) Additional Instructions: Please continue to take your regular medications as prescribed. Take your Flexeril regularly as discussed. Moist heat to the painful area. Take all of the prednisone as directed, starting tomorrow. If your symptoms persist, you may require further testing, including EMG or MRI. Return to the emergency department if you develop worsening or new concerning symptoms of any sort. Referrals: KEVIN MCQUEEN NP [Primary Care Provider] - Follow up as needed
[2020-01-14 17:50] VITALS: BP 97/66
== END 2020-01-14 17:50 | disposition home or self-care (01) ==
LOC: ER 15:23
DX: S29.012A Strain of muscle and tendon of back wall of thorax, initial encounter (principal); X58.XXXA Exposure to other specified factors, initial encounter; R51 Headache; M54.2 Cervicalgia; M79.602 Pain in left arm; M25.512 Pain in left shoulder; R20.0 Anesthesia of skin; R20.2 Paresthesia of skin; G40.909 Epilepsy, unspecified, not intractable, without status epilepticus; Z79.899 Other long term (current) drug therapy; Z79.891 Long term (current) use of opiate analgesic; Z88.6 Allergy status to analgesic agent
CPT/HCPCS: 99284; 96361; 96374; 96375; 36415; 85025; 85652; 86140; 80053; 70450; 72125; J1200; J2930; J1885; J2405; J7120

== ENCOUNTER 2020-09-20 09:16 | Emergency (ER) | payer SELFPAY ==
[2020-09-20] MEDS ORDERED: MORPHINE SULFATE 10 MG/ML INJ IV ONE (09:44)
[2020-09-20] MEDS ORDERED: ONDANSETRON 4 MG TAB.RAPDIS PO ONE (09:44)
--- NOTE | 2020-09-20 10:06 | ER Document Report ---
ED General - General Chief Complaint: Lower Abdominal Pain Stated Complaint: ABDOMINAL PAIN,VOMITING,NAUSEA Time Seen by Provider: 09/20/20 09:37 Primary Care Provider: KEVIN MCQUEEN NP [Primary Care Provider] - Follow up as needed Mode of Arrival: Ambulatory Information source: Patient TRAVEL OUTSIDE OF THE [place] IN LAST 30 DAYS: No - HPI Notes: Patient presents complaining of left lower quadrant abdominal pain. She states this started approximately 3 days ago while eating some ice cream. She states is been intermittent since then but became constant this morning. It is bilateral lower quadrant but greatest on the left. It does radiate from the left to the right. It is worse with movement and better with rest. It is moderate in intensity. Is a crampy sensation. She has had some vomiting. She has had no diarrhea or constipation. She has had a hysterectomy in the past and has no current vaginal symptoms. She denies any history of similar problems. She denies any other abdominal surgeries other than hysterectomy. - Related Data Allergies/Adverse Reactions: tramadol Allergy (Verified 09/20/20 10:03) Home Medications: keppra, oxycodone Past Medical History - General Information source: Patient - Social History Smoking Status: Never Smoker Chew tobacco use (# tins/day): No Frequency of alcohol use: None Drug Abuse: None Family History: Arthritis, CAD, CVA, DM, Hyperlipidemia, Hypertension, Malignancy Patient has homicidal ideation: No Pulmonary Medical History: Reports: Hx Pneumonia Neurological Medical History: Reports: Hx Migraine, Hx Seizures Renal/ Medical History: Reports: Hx Ovarian Cysts. Denies: Hx Peritoneal Dialysis Musculoskeletal Medical History: Reports Hx Fibromyalgia Psychiatric Medical History: Reports: Hx Depression Past Surgical History: Reports: Hx Section - 3, Hx Hysterectomy - Immunizations Immunizations up to date: Yes Hx Diphtheria, Pertussis, Tetanus Vaccination: Yes Review of Systems - Review of Systems Constitutional: denies: Chills, Fever Cardiovascular: denies: Chest pain, Palpitations Respiratory: denies: Cough, Short of breath -: Yes All other systems reviewed and negative Physical Exam - Vital signs Vitals: Temp Pulse Resp BP Pulse Ox 98.2 F 92 16 124/85 99 09/20/20 09:28 09/20/20 09:28 09/20/20 09:28 09/20/20 09:28 09/20/20 09:28 Interpretation: Normal - General General appearance: Appears well, Alert - HEENT Head: Normocephalic, Atraumatic Eyes: Normal Pupils: PERRL - Respiratory Respiratory status: No respiratory distress Chest status: Nontender Breath sounds: Normal Chest palpation: Normal - Cardiovascular Rhythm: Regular Heart sounds: Normal auscultation Murmur: No - Abdominal Inspection: Normal Distension: No distension Bowel sounds: Normal Tenderness: Tender - llq, Guarding - voluntary. No: Rebound Organomegaly: No organomegaly - Back Back: Normal, Nontender - Extremities General upper extremity: Normal inspection, Nontender, Normal color, Normal ROM, Normal temperature General lower extremity: Normal inspection, Nontender, Normal color, Normal ROM, Normal temperature, Normal weight bearing. No: Dain's sign - Neurological Neuro grossly intact: Yes Cognition: Normal Orientation: AAOx4 Víctor Coma Scale Eye Opening: Spontaneous Mackay Coma Scale Verbal: Oriented Mackay Coma Scale Motor: Obeys Commands Víctor Coma Scale Total: 15 Speech: Normal Motor strength normal: LUE, RUE, LLE, RLE Sensory: Normal - Psychological Associated symptoms: Normal affect, Normal mood - Skin Skin Temperature: Warm Skin Moisture: Dry Skin Color: Normal Course - Re-evaluation Re-evalutation: 09/20/20 11:28 Patient presents with some suprapubic and left lower quadrant abdominal pain. CT scan is unremarkable other than some questionable "fullness" of the pancreas. However this does not pertain to the patient's discomfort. I did discuss this with her however and the need for follow-up imaging. She does have an equivocal urine and possibly has an early urinary tract infection which is causing her discomfort. - Vital Signs Vital signs: Temp Pulse Resp BP Pulse Ox 98.2 F 92 16 124/85 99 09/20/20 09:28 09/20/20 09:28 09/20/20 09:28 09/20/20 09:28 09/20/20 09:28 - Laboratory Results Result Diagrams: 09/20/20 10:10 09/20/20 10:10 Laboratory Results Interpreted: 09/20/20 09/20/20 09/20/20 10:10 10:10 10:10 [facility] 26.7 L RDW 14.1 H BUN 21 H Glucose 111 H Urine Protein 30 H Urine Urobilinogen 4.0 H Critical Laboratory Results Reviewed: No Critical Results - Radiology Results Critical Radiology Results Reviewed: No Critical Results Discharge - Discharge Clinical Impression: UTI (urinary tract infection) Qualifiers: Urinary tract infection type: acute cystitis Hematuria presence: without hematuria Qualified Code(s): N30.00 - Acute cystitis without hematuria Condition: Stable Disposition: HOME, SELF-CARE Instructions: Urinary Tract Infection ([facility]) Additional Instructions: Your CT scan shows a possible abnormality of your pancreas. Please discuss this with your family physician as soon as possible to schedule dedicated imaging of the pancreas such as an ultrasound or CT scan. Prescriptions: Nitrofurantoin Monohyd/M-Cryst [Macrobid 100 mg Capsule] 100 mg PO BID 3 Days #6 cap Metoclopramide HCl [Reglan] 10 mg PO Q6 PRN 5 Days #10 tablet PRN Reason: For Nausea/Vomiting Forms: Return to Work Referrals: KEVIN MCQUEEN NP [Primary Care Provider] - Follow up as needed
[2020-09-20 10:33] LABS: ABSOLUTE EOSINOPHILS # (AUTO) 0.1 10^3/uL (0.0-0.6); ABSOLUTE LYMPHOCYTES (AUTO) 1.9 10^3/uL (0.5-4.7); ABSOLUTE MONOCYTES (AUTO) 0.4 10^3/uL (0.1-1.4); ABSOLUTE NEUT (AUTO) 2.6 10^3/uL (1.7-8.2); BASOPHILS % (AUTO) 0.8 % (0-2); EOSINOPHILS % (AUTO) 2.3 % (0-6); HEMATOCRIT 38.1 % (36.0-47.0); HEMOGLOBIN 12.3 g/dL (12.0-15.5); LYMPHOCYTES % (AUTO) 37.4 % (13-45); MEAN CORPUSCULAR HEMOGLOBIN 26.7 pg (27.0-33.4); MEAN CORPUSCULAR HGB CONC 32.3 g/dL (32.0-36.0); MEAN CORPUSCULAR VOLUME 83 fl (80-97); PLATELET COUNT 268 10^3/uL (150-450); RED CELL DISTRIBUTION WIDTH 14.1 % (11.5-14.0); SEGMENTED NEUTROPHILS % (AUTO) 51.5 % (42-78); TOTAL CELLS COUNTED % (AUTO) 100 %; WHITE BLOOD COUNT 5.1 10^3/uL (4.0-10.5)
--- NOTE | 2020-09-20 10:47 | RADIOLOGY REPORT (SQ) ---
EXAM DESCRIPTION: CT ABD/PELVIS NO ORAL OR IV IMAGES COMPLETED DATE/TIME: 09/20/2020 10:30 am REASON FOR STUDY: llq pain-had hysterectomy COMPARISON: None. TECHNIQUE: CT scan of the abdomen and pelvis performed without intravenous or oral contrast. Images reviewed with lung, soft tissue, and bone windows. Reconstructed coronal and sagittal MPR images revi ewed. All images stored on PACS. All CT scanners at this facility use dose modulation, iterative reconstruction, and/or weight based d osing when appropriate to reduce radiation dose to as low as reasonably achievable (ALARA). [facility]: Dose Right [facility]: CareDose [facility]: Dose Right [facility]: Teradose 4D [facility]: [employer] RADIATION DOSE: CT Rad equipment meets quality standard of care and radiation dose reduction techniq ues were employed. CTDIvol: 7.3 mGy. DLP: 409 mGy-cm.mGy. LIMITATIONS: None. FINDINGS: LOWER CHEST: No significant findings. No nodules or infiltrates. NON-CONTRASTED LIVER, SPLEEN, ADRENALS: Evaluation limited by lack of IV contrast. No identified sign ificant masses. PANCREAS: There is a subtle fullness of the tail of the pancreas. No peripancreatic inflammatory hubert nges. No cysts. GALLBLADDER: No identified stones by CT criteria. No inflammatory changes to suggest cholecystitis. RIGHT KIDNEY AND URETER: No suspicious masses. Assessment limited by lack of IV contrast. No signif icant calcifications. No hydronephrosis or hydroureter. LEFT KIDNEY AND URETER: No suspicious masses. Assessment limited by lack of IV contrast. No signifi cant calcifications. No hydronephrosis or hydroureter. AORTA AND RETROPERITONEUM: No aneurysm. No retroperitoneal masses or adenopathy. BOWEL AND PERITONEAL CAVITY: No obvious masses or inflammatory changes. No free fluid. APPENDIX: Not visualized. PELVIS, BLADDER, AND ABDOMINAL WALL:The bladder is largely decompressed. Status posthysterectomy. N o free fluid. No masses. BONES: No significant findings. OTHER: No other significant finding. IMPRESSION: 1. No evidence of obstructive uropathy or urolithiasis. No acute infectious/inflammato ry process evident. 2. Subtle fullness involving the tail of the pancreas. Recommend routine evaluation with dedicated pancreatic CT or MR imaging for definitive characterization. COMMENT: Quality ID # [id number]: Final reports with documentation of one or more dose reduction techniques (e.g., Automated exposure control, adjustment of the mA and/or kV according to patient size, use of iterative reconstruction technique) TECHNICAL DOCUMENTATION: JOB ID: [id number] 2010 [employer]- All Rights Reserved Reading location - IP/workstation name: [email or web address]
[2020-09-20 10:50] LABS: APPEARANCE,URINE SLIGHTLY-CLOUDY; BILIRUBIN,URINE NEGATIVE (NEGATIVE); CALCIUM OXALATE CRYSTALS,URINE FEW /HPF; COLOR,URINE YELLOW; GLUCOSE, URINE NEGATIVE (NEGATIVE); KETONES,URINE NEGATIVE (NEGATIVE); PROTEIN,URINE 30 mg/dL (NEGATIVE); URINE SPECIFIC GRAVITY 1.033
[2020-09-20 10:51] LABS: ALBUMIN 4.3 g/dL (3.5-5.0); ALKALINE PHOSPHATASE 68 U/L (38-126); ANION GAP 7 (5-19); ASPARTATE AMINO TRANSFERASE 27 U/L (14-36); BILIRUBIN,DIRECT 0.2 mg/dL (0.0-0.4); BILIRUBIN,TOTAL 0.6 mg/dL (0.2-1.3); BLOOD UREA NITROGEN 21 mg/dL (7-20); CALCIUM 9.9 mg/dL (8.4-10.2); CARBON DIOXIDE 28 mmol/L (22-30); CHLORIDE 107 mmol/L (98-107); GLUCOSE 111 mg/dL (75-110); POTASSIUM 4.1 mmol/L (3.6-5.0); TOTAL PROTEIN 7.5 g/dL (6.3-8.2)
[2020-09-20] MEDS ORDERED: METOCLOPRAMIDE HCL INJ/PF 10 MG/2 ML SDV IV ONE (11:33)
[2020-09-20 11:51] VITALS: BP 113/78
== END 2020-09-20 11:51 | disposition home or self-care (01) ==
LOC: ER 09:16
DX: N30.00 Acute cystitis without hematuria (principal); R10.32 Left lower quadrant pain; R10.31 Right lower quadrant pain; R11.10 Vomiting, unspecified; R56.9 Unspecified convulsions; Z90.710 Acquired absence of both cervix and uterus; Z79.899 Other long term (current) drug therapy; Z79.891 Long term (current) use of opiate analgesic; Z88.6 Allergy status to analgesic agent
CPT/HCPCS: 99285; 96374; 96375; 36415; 85025; 80053; 81001; 74176; S0119; J2765; J2270